=== PATIENT | female | born 1985 | race Caucasian/White ===

== ENCOUNTER 2017-12-19 15:23 | Emergency (ER) | payer MEDICAID, SELFPAY ==
[2017-12-19 15:24] VITALS: BP 134/81; PULSE 83; RESP 16; TEMP 36.6; O2SAT 100; BMI 17.6
--- NOTE | 2017-12-19 15:30 | RAD_ITS ---
STUDY: X-RAY - RIGHT WRIST REASON FOR EXAM: Female, 32 years old. Right wrist pain. No known injury. TECHNIQUE: 3 view(s) of the wrist were obtained. COMPARISON: None. FINDINGS: Normal visualized distal radius and ulna. Normal radiocarpal articulation. Normal distal radioulnar articulation. Normal carpal bones. Normal carpal articulations. Normal carpometacarpal articulation of the thumb. Normal second through fifth carpometacarpal articulations. Normal visualized metacarpal bones. The soft tissue structures are unremarkable. RAD/Wrist min 3 Views IMPRESSION: Normal x-ray examination of the wrist. Electronically Signed: Michael Nation MD at 15:46 EDT Tel [phone], Service support ,
--- NOTE | 2017-12-19 16:19 | ED.VISSUMM ---
- ER Visit Summary Date of Service: 12/19/17 Chief Complaint: Right wrist pain History of Present Illness: The patient is a 32 F who presents with right wrist pain since yesterday. 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 She does not recall specific injury. She does have a history of prior similar symptoms. She has tried no home treatment no wiiq-hsn-qotwyzh medications. She states her pain is worse with extension of the wrist. She denies paresthesias weakness or loss of function. She states occasionally pain shoots down into her hand or fingers. Physical Examination: Afebrile vitals are unremarkable Moist mucous membranes Heart regular No respiratory distress Patient has focal tenderness along the dorsal distal forearm and wrist over the wrist extensors her pain is increased with wrist extension she has normal strength normal opposition of the digits brisk capillary refill normal sensation to light touch she does not have focal bony tenderness she has an easily palpable radial pulse Test Results: Chest x-ray is normal Emergency Department Course and Treatment: History and examination are consistent with a wrist strain and strain of the muscles and tendons of the wrist extensors. She was given a Velcro wrist splint and instructed on supportive care including rest ice and elevation. She was given a prescription for naproxen and discharged home. Treatment Plan: [] Disposition: Discharge Impression: Right wrist strain This note was generated with [employer] dictation software. It may contain incorrect words, spelling, and punctuation that were not noted in review of the chart prior to signing ED Disposition - Plan for ED Patient: Chief Complaint: Upper Extremity Injury Referrals: Care Physician,No Primary [Primary Care Provider] -
--- NOTE | 2017-12-19 16:22 | ED.DCSUM_ITS ---
- ER Visit Summary Date of Service: 12/19/17 Chief Complaint: Right wrist pain History of Present Illness: The patient is a 32 F who presents with right wrist pain since yesterday. 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 She does not recall specific injury. She does have a history of prior similar symptoms. She has tried no home treatment no over-the- counter medications. She states her pain is worse with extension of the wrist. She denies paresthesias weakness or loss of function. She states occasionally pain shoots down into her hand or fingers. Physical Examination: Afebrile vitals are unremarkable Moist mucous membranes Heart regular No respiratory distress Patient has focal tenderness along the dorsal distal forearm and wrist over the wrist extensors her pain is increased with wrist extension she has normal strength normal opposition of the digits brisk capillary refill normal sensation to light touch she does not have focal bony tenderness she has an easily palpable radial pulse Test Results: Chest x-ray is normal Emergency Department Course and Treatment: History and examination are consistent with a wrist strain and strain of the muscles and tendons of the wrist extensors. She was given a Velcro wrist splint and instructed on supportive care including rest ice and elevation. She was given a prescription for naproxen and discharged home. Treatment Plan: [] Disposition: Discharge Impression: Right wrist strain This note was generated with [employer] dictation software. It may contain incorrect words, spelling, and punctuation that were not noted in review of the chart prior to signing ED Disposition - Plan for ED Patient: Chief Complaint: Upper Extremity Injury Referrals: Care Physician,No Primary [Primary Care Provider] -
--- NOTE | 2017-12-19 16:23 | ED.DEP ---
ED Disposition - Plan for ED Patient: Chief Complaint: Upper Extremity Injury Instructions: ED Strain Muscle Ext Prescriptions: Naproxen [Naprosyn] 500 mg PO BID #20 tab Referrals: Care Physician,No Primary [Primary Care Provider] -
[2017-12-19 16:37] VITALS: PULSE 81; RESP 16
--- NOTE | 2017-12-19 16:38 | ED.RN ---
THIS NURSE REVIEWED D/C INSTRUCTIONS WITH PT. PT VERBALIZED UNDERSTANDING OF INSTRUCTIONS. PT DENIES FURTHER NEEDS OR QUESTIONS AT THIS TIME. PT AMBULATES FROM ROOM ON OWN WITHOUT ASSISTANCE FROM STAFF
== END 2017-12-19 16:39 | disposition home or self-care (01) ==
PROVIDERS: Emergency Provider Emergency Medicine
DX: S66.911A Strain of unspecified muscle, fascia and tendon at wrist and hand level, right hand, initial encounter (principal); X58.XXXA Exposure to other specified factors, initial encounter; Y93.9 Activity, unspecified; Y92.9 Unspecified place or not applicable; Z86.19 Personal history of other infectious and parasitic diseases; Z90.710 Acquired absence of both cervix and uterus; Z72.0 Tobacco use
CPT/HCPCS: 73110; 99283

== ENCOUNTER 2018-01-23 20:32 | Emergency (ER) | payer MEDICAID, SELFPAY ==
[2018-01-23 20:32] VITALS: BP 114/72; PULSE 83; RESP 16; TEMP 36.8; O2SAT 97; BMI 16.2
[2018-01-23 21:38] LABS: Absolute Lymphocyte Count 2.25 X10^3/ul (0.83-4.51); Absolute Neutrophil Count 4.8 X10^3/uL (2.0-7.7); Basophil# 0.04 X10^3/uL; Basophil% 0.5 % (0-1); Eosinophil# 0.33 X10^3/uL; Eosinophils% 4.1 % (0-5); Hematocrit 38.9 % (37-47); Hemoglobin 12.7 g/dl (12.0-15.0); Lymphocyte # 2.25 X10^3/ul (4.0); Lymphocyte % 27.7 % (19-41); Mean Corp Hgb Conc 32.6 g/gl (32-36); Mean Corpuscular Hgb 28.5 pg (27.0-32.0); Mean Corpuscular Volume 87.2 fL (81-99); Monocyte# 0.67 X10^3/uL; Monocyte% 8.3 % (0-10); Neutrophil # 4.82 X10^3/uL (2.7-7.7); Neutrophil % 59.3 % (47-70); Platelet Count 181 K/mm3 (150-450); RBC Distribution Width CV 13.7 % (11.6-14.6); RBC Distribution Width SD 43.4 fl (35.1-43.9); Red Blood Count 4.46 M/mm3 (4.2-5.4); White Blood Count 8.1 K/mm3 (4.4-11.0)
[2018-01-23 21:54] LABS: Anion Gap 5 (5-15); BUN 16 mg/dL (7-18); BUN/Creat Ratio 24.8 RATIO (10-20); Calcium,Total 8.8 mg/dL (8.5-10.1); Chloride 111 mmol/L (98-107); Creatinine, Serum 0.65 mg/dL (0.55-1.02); EST Glomerular Filtration Rate 113 mL/min (>60); Est Glom Filt Rate - Afr Amer 136 mL/min (>60); Estimated Creatinine Clearance 84.54 ml/min; Glucose 88 mg/dL (74-106); Potassium 3.7 mmol/L (3.5-5.1); Sodium Level 141 mmol/L (136-145)
[2018-01-23 21:59] LABS: Pregnancy, Serum, hCG Quali. NEGATIVE Negative (0-9 Nonpreg)
[2018-01-23 22:01] LABS: POSITIVE COUNT NO; POSITIVE DIFFERENTIAL NO; POSITIVE MORPHOLOGY NO
[2018-01-23] MEDS: 0.9% Normal Saline 1,000 ML 999 ML IV (22:08)
[2018-01-23] MEDS: proMETHazine 25 MG/ML Syringe 12.5 MG IV (22:09)
[2018-01-23 22:19] LABS: Lipase 195 U/L (73-393)
[2018-01-23 22:23] LABS: AST(SGOT) 13 U/L (15-37); Alanine Aminotransfer ALT/SGPT 18 U/L (13-56); Alkaline Phosphatase 62 U/L (45-117); Bilirubin, Direct 0.08 mg/dL (0.00-0.30); Globulin 3.2 g/dL (2.2-4.2); Protein, Total 7.2 g/dL (6.4-8.2)
[2018-01-23 22:43] LABS: Mucous, Urine 0 SEEN /hpf (<or=2+); Red Blood Cells-Urine 0 SEEN /hpf (0-5)
[2018-01-23 22:48] LABS: Color, Urine Yellow (Yellow); Glucose, Dipstick Normal (Normal); Ketone-Dipstick Negative (Negative); Leukocyte Esterase-Dipstick 25 /ul (Negative); Nitrite-Dipstick Negative (Negative); Occult Blood-Urine Negative /ul (Negative); Protein-Dipstick Negative (Negative); Urine Bilirubin Dipstick Negative (Negative); Urine Clarity Clear (Clear); Urine Urobilinogen Normal (Normal)
[2018-01-23 22:54] LABS: Squamous Epithelial Cells - UA 0-5 SEEN /hpf (5-10); White Blood Cells 0-5 SEEN /hpf (0-5)
[2018-01-23 22:55] LABS: Bacteria 1+ /hpf (None Seen)
--- NOTE | 2018-01-23 23:03 | ED.VISSUMM ---
- ER Visit Summary Date of Service: 01/23/18 Chief Complaint: Nausea and vomiting History of Present Illness: The patient is a 32 F who presents with nausea and vomiting. It began earlier today. She reports 14-15 episodes of nonbloody nonbilious emesis today. She states her abdomen is a little sore vomiting but denies any real pain. She denies any diarrhea. She states she had a fever of 100.0. Physical Examination: Afebrile vitals are within normal limits Patient resting comfortably in no distress Moist mucous membranes Heart regular rate and rhythm Lungs are clear Abdomen soft nontender nondistended Alert Test Results: CBC CMP lipase urinalysis all normal and is negative Emergency Department Course and Treatment: Patient was treated with IV fluids and Phenergan here she is resting completely on reevaluation she said no further vomiting. Patient discharged. Treatment Plan: [] Disposition: Discharge Impression: Vomiting This note was generated with [employer] dictation software. It may contain incorrect words, spelling, and punctuation that were not noted in review of the chart prior to signing ED Disposition - Plan for ED Patient: Chief Complaint: Nausea/Vomiting Referrals: Care Physician,No Primary [Primary Care Provider] -
--- NOTE | 2018-01-23 23:05 | ED.DEP ---
ED Disposition - Plan for ED Patient: Chief Complaint: Nausea/Vomiting Instructions: ED Nausea Vomiting Referrals: Care Physician,No Primary [Primary Care Provider] -
[2018-01-23 23:15] VITALS: PULSE 83; RESP 16; O2SAT 97
== END 2018-01-23 23:16 | disposition home or self-care (01) ==
PROVIDERS: Emergency Provider Emergency Medicine
DX: R11.2 Nausea with vomiting, unspecified (principal); Z90.710 Acquired absence of both cervix and uterus; Z72.0 Tobacco use
CPT/HCPCS: 80048; 80076; 81001; 83690; 84703; 85025; 96361; 96374; 99284; J7030; A4216

== ENCOUNTER 2018-04-04 15:58 | Emergency (ER) | payer OTHER, SELFPAY ==
[2018-04-04 16:00] VITALS: BP 105/70; PULSE 73; RESP 18; TEMP 36.7; O2SAT 97; BMI 16.2
--- NOTE | 2018-04-04 16:25 | RAD_ITS ---
STUDY: X-RAY - LEFT HAND REASON FOR EXAM: Female, 32 years old. Trauma TECHNIQUE: 3 view(s) of the hand. COMPARISON: None. FINDINGS: There is no evidence of fracture or dislocation. There are no significant degenerative changes. There are no radiodense foreign bodies. RAD/Hand Min 3 Views IMPRESSION: No fracture or dislocation. Electronically Signed: Brian Sanders, at 16:45 EDT Tel , Service support ,
--- NOTE | 2018-04-04 17:16 | ED.VISSUMM ---
- ER Visit Summary Date of Service: 04/04/18 Chief Complaint: Left hand injury History of Present Illness: The patient is a 32 F who presents with chief complaint of left hand pain. Patient states she injured her left hand at work on March 21. Her hand slipped when trying to cut a band and she crushed her hand against a piece of metal. She was seen the following day at [facility]. Patient states x-rays were done and she was told she had a fracture of her thumb. She is placed in a splint for 1 week and then changed out to an Bennie bandage. Patient presents with continued pain to the left thumb. She had previously been doing physical therapy but states she received a phone call stating that [employer] had denied it. When she called [employer] they state that they had just received the paperwork today. Physical Examination: Vital signs are unremarkable. Patient sitting in the modi chair no acute distress. Left upper extremity examination significant for tenderness along the left thumb without deformity. There is no significant edema. She is normal cap refill distally. There is no tenderness at the wrist or elbow. Test Results: Left hand x-rays are obtained and reveal no evidence of fracture or dislocation. Emergency Department Course and Treatment: I did explain to the patient that at this time we see no evidence of fracture, however she may still have a ligament or tendon injury. She is placed in a Velcro thumb spica splint and begin prescription for naproxen. Should be referred to orthopedics for follow-up as well as back to [facility]. Treatment Plan: [] Disposition: Discharge Impression: Crush injury left hand This note was generated with [employer] dictation software. It may contain incorrect words, spelling, and punctuation that were not noted in review of the chart prior to signing ED Disposition - Plan for ED Patient: Chief Complaint: Upper Extremity Injury Referrals: Care Physician,No Primary [Primary Care Provider] -
--- NOTE | 2018-04-04 17:18 | ED.DEP ---
ED Disposition - Plan for ED Patient: Disposition: Home or Assisted Living Chief Complaint: Upper Extremity Injury Instructions: ED Crush Injury Finger No Fx Prescriptions: Naproxen [Naprosyn] 500 mg PO BID PRN #20 tablet Referrals: Sonny Esteban DO [STAFF PHYSICIAN] - [facility] [GROUP OF PHYSICIANS] -
== END 2018-04-04 17:48 | disposition home or self-care (01) ==
PROVIDERS: Emergency Provider Emergency Medicine
DX: S67.22XA Crushing injury of left hand, initial encounter (principal); X58.XXXA Exposure to other specified factors, initial encounter; Y93.9 Activity, unspecified; Y92.9 Unspecified place or not applicable; Z85.41 Personal history of malignant neoplasm of cervix uteri; Z90.710 Acquired absence of both cervix and uterus; Z72.0 Tobacco use
CPT/HCPCS: 73130; 99283

== ENCOUNTER 2020-04-21 11:21 | Emergency (ER) | payer SELFPAY ==
[2020-04-21 11:22] VITALS: BP 102/76; PULSE 98; RESP 18; TEMP 36.8; O2SAT 99; BMI 17.6
--- NOTE | 2020-04-21 12:22 | RAD_ITS ---
STUDY: X-RAY CHEST REASON FOR EXAM: Female, 34 years old. COUGH SORE THROAT AND CHEST TIGHTNESS SINCE TUESDAY TECHNIQUE: Single AP portable view of the chest. COMPARISON: None. FINDINGS: The lungs are clear and expanded. There is no demonstrated pleural abnormality. Normal size heart. Normal mediastinum and malia. Normal visualized pulmonary arteries. Normal visualized aortic arch and descending thoracic aorta. Normal visualized thoracic spine. Normal visualized ribs, clavicles, and shoulders. There is no demonstrated abnormality of the visualized soft tissue structures of the upper abdomen. RAD/Chest 1 View (Portable) IMPRESSION: Normal x-ray examination of the chest. Electronically Signed: Michael Nation, at 13:02 EDT , Service support ,
[2020-04-21 12:25] VITALS: O2SAT 96
--- NOTE | 2020-04-21 12:41 | ED.VISSUMM ---
- ER Visit Summary Date of Service: 04/21/20 Chief Complaint: [Sore throat, cough, runny nose] History of Present Illness: The patient is a 34 F [resents to the emergency department symptoms started 2 days ago. Patient denies any fever. She denies any exposures to COVID. 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 Patient denies recent travel or surgery. She denies any chest pain. She denies any sick family members. She does live alone.] Physical Examination: [HEENT-PERRLA, EOMI. Cranial nerves II through XII grossly intact. TMs clear. Mucous membranes moist. No adenopathy. No tonsillar exudates. Uvula midline. No trismus. Cardiovascular-regular rate and rhythm without murmur or ectopy Lungs-clear to auscultation, chest wall stable without crepitus or subcu emphysema Abdomen-normoactive bowel sounds, soft, nontender, no rebound or rigidity, no peritoneal signs. Extremities-intact ?4, normal range of motion, normal pulses, atraumatic] Test Results: [S x-ray obtained was unremarkable. COVID-19 testing was undertaken and results pending.] Emergency Department Course and Treatment: [We will be given a prescription for Tessalon Perles.] Treatment Plan: [Advised to self quarantine for 14 days.] Disposition: [Discharged home in stable condition.] Impression: [Viral URI] This note was generated with [employer] software. It may contain incorrect words, spelling, and punctuation that were not noted in review of the chart prior to signing ED Disposition - Plan for ED Patient: Referrals: Care Physician,No Primary [Primary Care Provider] -
--- NOTE | 2020-04-21 12:43 | DCINST.ED_ITS ---
ED Disposition - Plan for ED Patient: Instructions: ED Upper Resp Infec No Abx Tx Prescriptions: Benzonatate [Tessalon Perle] 200 mg PO TID PRN PRN #20 cap PRN Reason: Cough Transmission Status: Pending to [employer] #30 Referrals: Care Physician,No Primary [Primary Care Provider] - Jacqueline Bowles MD [STAFF PHYSICIAN] - 5-7 Days
[2020-04-21 13:03] VITALS: BP 120/74; PULSE 88; RESP 18; O2SAT 96
--- NOTE | 2020-04-21 13:09 | ED.RN ---
pt advised to self quarauntine. pt states work will not allow her to and demanding she come to work. pt advised to contact the health department if necessary
== END 2020-04-21 13:10 | disposition home or self-care (01) ==
LOC: ED 12:37
PROVIDERS: Emergency Provider Emergency Medicine
DX: J06.9 Acute upper respiratory infection, unspecified (principal)
CPT/HCPCS: 71045; 87635; 99282; U0003

== ENCOUNTER 2020-04-23 11:17 | Emergency (ER) | payer SELFPAY ==
[2020-04-23 11:18] VITALS: BP 93/72; PULSE 97; RESP 18; TEMP 36.6; O2SAT 98; BMI 17.5
--- NOTE | 2020-04-23 12:20 | RAD_ITS ---
STUDY: X-RAY CHEST REASON FOR EXAM: Female, 35 years old. cough, sob. HX CERVICAL CA AND HPV TECHNIQUE: Single AP portable view of the chest. COMPARISON: Comparison is made with prior study dated April 21, 2020. FINDINGS: The lungs are clear and expanded. There is no demonstrated pleural abnormality. Normal size heart. Normal mediastinum and malia. Normal visualized pulmonary arteries. Normal visualized aortic arch and descending thoracic aorta. Normal visualized thoracic spine. Normal visualized ribs, clavicles, and shoulders. There is no demonstrated abnormality of the visualized soft tissue structures of the upper abdomen. RAD/Chest 1 View (Portable) IMPRESSION: Normal x-ray examination of the chest. Electronically Signed: Michael Nation, at 12:42 EDT , Service support ,
[2020-04-23] MEDS: Naproxen 500 MG Tablet PO (12:25)
--- NOTE | 2020-04-23 13:34 | ED.DCSUM_ITS ---
- ER Visit Summary Date of Service: 04/23/20 Chief Complaint: Cough History of Present Illness: The patient is a 35 F with no primary care physician. She has a cough that began 4 days ago. Is productive of green/yellow sputum. She believes this is because she was camping all weekend. She has had chills, but no fever. She reports that she has a sharp pain that is 8 out of 10 in severity with coughing and is pain-free at rest. She reports that she is mildly short of breath. She has diffuse myalgias. She has abdominal pain from coughing. Physical Examination: Vitals: Stable. Afebrile. General: Well-nourished and well-developed. Head: Normocephalic atraumatic. Neck: Supple, no lymphadenopathy. No JVD. Nontender. Cardiovascular: Regular rate and rhythm. No murmurs. Respiratory: No respiratory distress. Clear to auscultation bilaterally. Abdominal: Soft, nontender, nondistended, normal bowel sounds. No guarding, rebound, or peritoneal signs. Back: Nontender. Extremities: Nontender, no edema. Skin: Normal color, no rash. Neurologic: Alert and oriented ?3. Cranial nerves II through XII are intact. Normal strength and sensation. Psych: Normal affect. Test Results: Clinical Impression(s) from Imaging Studies Chest X-Ray 04/23/20 12:20 IMPRESSION: Normal x-ray examination of the chest. Electronically Signed: Michael Nation, at 12:42 EDT , Service support , Emergency Department Course and Treatment: Patient had a work-up 2 days ago that included a negative COVID-19 test. This was not repeated. She was given naproxen p.o. and is sleeping comfortably. Treatment Plan: Patient will be discharged with symptomatic care. Push fluids. Use Tylenol and/or ibuprofen for pain. I discussed that she could have COVID-19 and she needs to quarantine. She is instructed to follow-up with the [facility] in 2 weeks if not improving. Return to the emergency department for any worsening symptoms. Disposition: To home in improved and stable condition. Impression: 1. URI. This note was generated with [employer] dictation software. It may contain incorrect words, spelling, and punctuation that were not noted in review of the chart prior to signing ED Disposition - Plan for ED Patient: Disposition: Home or Assisted Living Instructions: ED Upper Resp Infec No Abx Tx Prescriptions: Naproxen [Naprosyn] 500 mg PO BID #14 tab Prescription Printed Referrals: Keara Keane [NON-STAFF] - 10-14 Days if not better
== END 2020-04-23 13:59 | disposition home or self-care (01) ==
LOC: ED 13:48
PROVIDERS: Emergency Provider Emergency Medicine
DX: J06.9 Acute upper respiratory infection, unspecified (principal); F17.200 Nicotine dependence, unspecified, uncomplicated
CPT/HCPCS: 71045; 99283

== ENCOUNTER 2021-01-06 09:01 | Emergency (ER) | payer MEDICAID, SELFPAY ==
[2021-01-06 09:01] VITALS: BP 131/77; BP 136/77; PULSE 74; PULSE 78; RESP 16; TEMP 36.2; O2SAT 100; O2SAT 99; BMI 19.9
--- NOTE | 2021-01-06 09:28 | CT_ITS ---
STUDY: CT BRAIN WITHOUT CONTRAST REASON FOR EXAM: Female, 35 years old. Vertigo RADIATION DOSAGE (If Supplied By Facility): CTDIvol = ( 44.99 ) mGy, DLP = ( 779.24 ) mGycm TECHNIQUE: Transaxial CT imaging of the brain was performed without administration of intravenous contrast material. Individualized dose optimization techniques were used for this CT. COMPARISON: No relevant priors. FINDINGS: Normal soft tissue structures. Normal calvarium. Normal size ventricles and extra-axial spaces for the patient''s age. Normal white matter tracts of the cerebral hemispheres. Normal basal ganglia and thalami. Normal brainstem. Normal cerebellum. There is no intracranial hemorrhage. There are no findings of an acute ischemic infarction. Normal visualized paranasal sinuses. CT/Brain/Head without Contrast IMPRESSION: Normal unenhanced CT scan of the brain. Electronically Signed: Michael Nation MD at 10:38 EDT , Service support ,
[2021-01-06] MEDS: Ondansetron ODT 4 MG Tablet PO ×2 (09:33→10:27)
--- NOTE | 2021-01-06 09:37 | ED.VIS.GEN ---
History of Present Illness Chief Complaint: Dizziness Informant: Patient Onset: Days, - Timing: Intermittent Narrative: Patient is a 35-year-old female presented with intermittent episodes of dizziness. She states she has been having episodes over the past 5 days. She states she is 5-6 episodes a day. She states when they happen she feels that she cannot walk great and is very dizzy as if she is on a ship or drunk. She notes she also gets pale, sweaty, her vision is cloudy and has associated nausea and vomiting. She denies any associated chest pain, heart racing or difficulty breathing. Denies associated abdominal pain. No fever or chills. Patient states a couple years ago she had similar episodes and was diagnosed with vertigo at [facility]. She states she was placed on the medicine but it made her sleepy and had a hard time working. She thinks it might have been Antivert. She had another wave of symptoms a couple weeks ago and followed up at [facility]. She had blood work and Holter monitor. She does not know the results of this. Notes that she does sometimes get ringing in her ear and gets fullness in her right ear. Mother has M?ni?re's disease. Past Medical History - Allergies and Home Meds Allergies/Adverse Reactions: Allergies acetaminophen [From Vicodin] Allergy (Verified 01/06/21 09:04) Hives hydrocodone [From Vicodin] Allergy (Verified 01/06/21 09:04) Hives sulfamethoxazole [From Bactrim] Allergy (Verified 01/06/21 09:04) Hives trimethoprim [From Bactrim] Allergy (Verified 01/06/21 09:04) Hives Primary Care Physician: Care Physician,No Primary [Primary Care Provider] - Past Medical History: - - HPV, vertigo Surgical History: hysterectomy Lives: With Family Smoking Status: Current every day smoker Review of Systems General: Reports: Sweats, - - Dizziness. Denies: Chills, Fever Eyes: Denies: Visual changes - bilaterally, Diplopia ENT: Denies: Rhinorrhea, Sore throat Cardiovascular: Denies: Chest pain, Palpitations, Heart racing Respiratory: Denies: Dyspnea, Cough, Dyspnea on exertion Gastrointestinal: Reports: Nausea, Vomiting. Denies: Abdominal pain, Diarrhea, Melena, Hematochezia Genitourinary: Denies: Dysuria, Hematuria, Frequency Musculoskeletal: Denies: Back pain, Extremity Pain Skin: Denies: Rash, Wounds Neurological: Denies: Headache, Weakness, Numbness Physical Exam Vital Signs/Narrative: Vital Signs Temp Pulse Resp BP Pulse Ox 01/06/21 09:01 97.2 F L 74 16 131/77 H 100 Inital Vital Signs reviewed: Yes General: Well nourished, Well developed, No Acute Distress Head: Normocephalic, Atraumatic Eyes: Perrl, EOMI, - - Bilateral fatiguing horizontal nystagmus with leftward gaze ENT: Moist mucous membranes, No rhinorrhea, TM's clear Neck: Supple, Nontender, No JVD Cardiovascular: Regular rate, Regular rhythm, No murmurs Respiratory: No distress, CTA bilaterally, Chest nontender Abdomen: Soft, Nontender, Nondistended, Normal bowel sounds Back: Nontender, Normal Inspection Extremities: Nontender, No edema Skin: Normal color, No rash Neurological: Alert, Oriented x3, Cranial nerves II-XII grossly intact, Normal Strength, Normal Sensation, - - Normal coordination, no truncal ataxia. Normal [id number] Psychological: Normal affect, Normal Mood Diagnostic/Tx/Re-eval Clinical Impression(s) from Imaging Studies Brain CT 01/06/21 09:28 IMPRESSION: Normal unenhanced CT scan of the brain. Electronically Signed: Michael Nation MD at 10:38 EDT , Service support , - Medical Decision Making Patient is evaluated for intermittent episodes of dizziness for the past years but worsening over the past week. Because of the ongoing chronicity of it I did obtain a head CT which does not show any cerebellar lesions, this or any other acute process. I suspect this is peripheral vertigo and I question if she could have M?ni?re's disease as she has a family history of it and does also report ringing in her right ear intermittently. Patient has no other neurologic symptoms or any other focal neurologic deficits. She does not have any truncal ataxia. Patient has improvement of her symptoms with oral Valium and Zofran. I was able to perform the [place]-Hallpike test and patient was positive on the right. Patient referred to ENT for follow-up. She is given a prescription for meclizine and a work note per her request. Patient is counseled on signs and symptoms requiring return to the emergency room. Patient verbalizes agreement and understand this plan. Patient discharged home in stable and improved condition. ED Disposition - Plan for ED Patient: Disposition: Home or Assisted Living Diagnosis: Peripheral vertigo involving right ear Instructions: ED BPV Vertigo Prescriptions: Meclizine HCl 25 mg PO Q6H PRN PRN #15 tablet PRN Reason: Vertigo Transmission Status: Pending to [employer] #30 Referrals: Jason Logan MD [STAFF PHYSICIAN] - Additional Instructions: Follow-up with ENT- Arturo Matthews. I suspect you have vertigo and is possible with your family history and ringing in ears you might also have M?ni?re's disease. Please also follow-up with your primary care doctor.
[2021-01-06] MEDS: diazePAM 5 MG Tablet PO (10:07)
[2021-01-06 13:00] VITALS: BP 94/64; PULSE 81
== END 2021-01-06 13:04 | disposition home or self-care (01) ==
PROVIDERS: Emergency Provider Emergency Medicine
DX: H81.391 Other peripheral vertigo, right ear (principal); F17.200 Nicotine dependence, unspecified, uncomplicated
CPT/HCPCS: 70450; 99283; A4216

== ENCOUNTER → 2021-01-26 16:17 | Outpatient (CLI) | payer MEDICAID, SELFPAY ==
[2021-01-06 09:01] VITALS: BMI 19.9
--- NOTE | 2021-01-26 16:23 | MRI_ITS ---
HISTORY: Ataxia. Cervical cancer. Symptoms are ongoing for 4 weeks. Hysterectomy. Mnire's disease. Vertigo for 3 or 4 weeks R 27.0 Technique: An MRI of the brain was performed. Additional temporal bone series were obtained and the axial and coronal plane. Pre-and post gadolinium images were obtained. 420 images. Comparison study is a CT scan of the brain from January 06, 2021. Findings: Brain volume is normal. Pires-white differentiation is preserved. The orbits and globes are normal. There are no masses, herniations, nor deviations. No acute ischemia is present. No white matter disease is present. Flow is present within major central intracranial arteries. Paranasal sinuses and mastoid air cells are free of disease. No metastatic enhancing lesions are perceived within the brain. No cerebral pontine angle masses. Cranial nerves V, 6, 7, and 8 are normal. The internal auditory canal masses. The vestibular and cochlear systems are normal. Internal and external auditory canals are normal in size and appearance. MRI/Brain W/WO Contrast IMPRESSION: Normal. at 0700 Reported and signed by: Jim Becerra MD Electronically Signed: Jim Becerra MD at 6:58 EDT Tel , Service support ,
== END ==
PROVIDERS: PCP Family Medicine; Referring Provider Otolaryngology; Visit Provider Otolaryngology
DX: R27.0 Ataxia, unspecified (principal)
CPT/HCPCS: 70553; A9575

== ENCOUNTER 2021-02-04 09:10 | Emergency (ER) | payer MEDICAID, SELFPAY ==
[2021-02-04 09:11] VITALS: BP 138/77; PULSE 106; RESP 15; TEMP 36.4; O2SAT 97; BMI 18.1
[2021-02-04 09:23] VITALS: O2SAT 98
--- NOTE | 2021-02-04 09:36 | EX.ED.DYSGE1 ---
HPI History of Present Illness Chief Complaint: Cold Sx Narrative Narrative: 35-year-old female states that about a week ago she began to have nasal congestion and a cough. She saw ENT was given 5 days of amoxicillin. She subsequently developed some diarrhea. She states now she feels the cough is deep in her chest and she feels more short of breath. No fevers. PFSH PFSH Medical History Anemia Asthma Bartholin cyst Cervical cancer Home Medications albuterol sulfate [Ventolin HFA] 2 puff INHALATION Q4H PRN PRN #1 inhaler 02/04/21 [Rx Last Taken Unknown] mirtazapine 15 mg PO QHS 02/04/21 [History Last Taken Unknown] prazosin 1 mg PO QHS 02/04/21 [History Last Taken Unknown] prednisone 60 mg PO DAILY #15 tablet 02/04/21 [Rx Last Taken Unknown] sertraline 50 mg PO DAILY 02/04/21 [History Last Taken Unknown] Allergy/AdvReac Type Severity Reaction Status Date / Time acetaminophen [From Vicodin] Allergy Hives Verified 01/06/21 09:04 hydrocodone [From Vicodin] Allergy Hives Verified 01/06/21 09:04 sulfamethoxazole Allergy Hives Verified 01/06/21 09:04 [From Bactrim] trimethoprim [From Bactrim] Allergy Hives Verified 01/06/21 09:04 Family History (Updated 04/10/18 @ 12:41 by Lisbeth Kruger) Mother Myocardial infarction History of hysterectomy Surgical History H/O LEEP History of hysterectomy Hx of section Social History Smoking Status: Current every day smoker alcohol intake: never ROS ROS ED Constitutional Constitutional ED: Denies chills or weight loss Eyes Eyes: Denies change in vision or diplopia ENT ENT ED: Reports rhinorrhea; Denies ear pain or sore throat Cardiovascular Cardiovascular: Denies chest pain, orthopnea, palpitations or racing heartbeat Respiratory/Chest Respiratory/Chest: Reports cough, dyspnea, dyspnea on exertion and sputum; Denies orthopnea Gastrointestinal Gastrointestinal: Reports diarrhea; Denies abdominal pain, nausea or vomiting Genitourinary Genitourinary ED: Denies dysuria, hematuria or urinary frequency Musculoskeletal Musculoskeletal: Denies arthralgias or myalgias Integumentary Denies abscess or rash Neurologic Neurologic: Denies headache(s) or weakness Psychiatric Psychiatric: Denies anxiety, depression, suicidal ideation or suicidal thoughts Endocrine Endocrinology: Denies polydipsia, polyphagia or polyuria Allergic/Immunologic Allergic/Immunologic ED: Denies mouth swelling, tongue swelling or urticaria EXAM Physical Exam Const Vital Signs: 02/04/21 09:11 02/04/21 09:45 02/04/21 09:57 Temperature 97.5 F L Temperature Source Temporal Pulse Rate 106 H 96 Respiratory Rate 15 24 H Respiratory Effort Short of Breath Labored Respiratory Depth Normal Respiratory Pattern Normal Blood Pressure 138/77 H Blood Pressure Mean 97 Pulse Ox 97 98 Oxygen Delivery Method Room Air Room Air Positive well nourished and well developed General Appearance ED: well developed HEENT Reports normocephalic, head/scalp atraumatic and moist mucous membranes HEENT Narrative: Nasal congestion no oropharyngeal erythema Eyes PERRL and EOMs intact bilaterally Neck no lymphadenopathy, supple and no JVD Resp normal respiratory effort Auscultation: rhonchi and wheezes Cardio regular rate, regular rhythm and no murmurs GI normal to inspection, nondistended, normoactive bowel sounds and non-tender Palpation: soft Back/Spine no CVA tenderness and normal ROM Extremity normal to inspection General Extremety ED: Negative for edema General Extremity: Negative for edema Neuro oriented x3 and CN's II-XII intact bilaterally Sensorium / Orientation: alert Motor Exam: strength 5/5 throughout Psych mental status grossly normal Mood & Affect: Negative for depressed or tearful Skin no rashes or lesions noted and no wounds MDM MDM MDM Narrative Medical decision making narrative: My interpretation is a single view portable chest x-ray is no acute process. Covid test negative. Patient received a DuoNeb. The diarrhea is probably related to the antibiotics. Thinks she also has bronchitis. She was counseled on smoking cessation. I will place her albuterol MDI as well as prednisone. I think this is most likely viral in nature. Lab Data Attestation: I reviewed the patient's lab results. Radiography Diagnostic Testing: Radiology Impression Chest X-Ray 02/04/21 10:05 IMPRESSION: Normal x-ray examination of the chest. Electronically Signed: Michael Nation MD at 10:23 EDT , Service support , Discharge Plan Triage Chief Complaint: Cold Sx ED Provider: Yonas Shen Dx/Rx/DC Orders Clinical Impression: Acute bronchitis with bronchospasm Instructions: ED Bronchitis with Wheezing (Adult) Prescriptions: New prednisone 20 MG tablet 60 mg PO DAILY Qty: 15 RF: 0 albuterol sulfate [Ventolin HFA] 1 INHALER inhaler 2 puff inhalation Q4H PRN PRN (Reason: Wheezing) Qty: 1 RF: 0 No Action prazosin 1 mg Capsule 1 mg PO QHS RF: 0 mirtazapine 15 mg Tablet,Disintegrating 15 mg PO QHS RF: 0 sertraline 50 mg Tablet 50 mg PO DAILY RF: 0 Stand Alone Forms: ED Work / School Excuse Primary Care Provider: Riddhi Maldonado Referrals: Riddhi Maldonado MD [Primary Care Provider] - 1 Week if not improving Disposition Disposition: Home, self care
[2021-02-04] MEDS: Ipratropium/Albuterol Sulfate 3 ML AMPUL.NEB INHALATION (09:43)
[2021-02-04 09:45] VITALS: PULSE 96; RESP 24; O2SAT 98
--- NOTE | 2021-02-04 10:05 | RAD_ITS ---
STUDY: X-RAY CHEST REASON FOR EXAM: Female, 35 years old. One week history of cough and shortness of breath. TECHNIQUE: Single AP portable view of the chest. COMPARISON: Comparison is made with prior study dated 04/23/2020. FINDINGS: The lungs are clear and expanded. There is no demonstrated pleural abnormality. Normal size heart. Normal mediastinum and malia. Normal visualized pulmonary arteries. Normal visualized aortic arch and descending thoracic aorta. Normal visualized thoracic spine. Normal visualized ribs, clavicles, and shoulders. There is no demonstrated abnormality of the visualized soft tissue structures of the upper abdomen. RAD/Chest 1 View (Portable) IMPRESSION: Normal x-ray examination of the chest. Electronically Signed: Michael Nation MD at 10:23 EDT , Service support ,
[2021-02-04 10:47] VITALS: BP 97/71; PULSE 70; RESP 14; O2SAT 98
== END 2021-02-04 11:01 | disposition home or self-care (01) ==
PROVIDERS: Emergency Provider Emergency Medicine; PCP Family Medicine
DX: J20.9 Acute bronchitis, unspecified (principal); Z86.2 Personal history of diseases of the blood and blood-forming organs and certain disorders involving the immune mechanism; Z85.41 Personal history of malignant neoplasm of cervix uteri; F17.200 Nicotine dependence, unspecified, uncomplicated
CPT/HCPCS: 71045; 87426; 94640; 99282

== ENCOUNTER 2021-02-16 10:15 | Emergency (ER) | payer MEDICAID, SELFPAY ==
[2021-02-16 10:16] VITALS: BP 105/72; PULSE 95; RESP 16; TEMP 36.6; O2SAT 99; BMI 18.1
--- NOTE | 2021-02-16 10:34 | EKG12_ITS ---
Test Reason : ALLERGIC REACTION Blood Pressure : / mmHG Vent. Rate : 079 BPM Atrial Rate : 079 BPM P-R Int : 184 ms QRS Dur : 080 ms QT Int : 374 ms P-R-T Axes : 070 061 033 degrees QTc Int : 428 ms Normal sinus rhythm Cannot rule out Anterior infarct , age undetermined Abnormal ECG Confirmed by CHOCO ANNE, CAMILA ([id number]), editor trade journal ALONSO BUCKLEY ([id number]) on 02/18/2021 8:19:02 AM Referred By: TOBY Confirmed By:CAMILA WILHELM MD
--- NOTE | 2021-02-16 10:34 | EX.ED.DYSGE1 ---
HPI History of Present Illness Chief Complaint: Allergic Reaction Informant: patient Narrative Narrative: Patient presents for a questionable allergic reaction. She woke up this morning and felt like her face was swollen and her skin feels tight. She states that she had some tightness in her chest which is since resolved. She denies any trouble swallowing. She denies any tongue swelling. No rashes have been seen. She states that she recently finished a course of prednisone for bronchitis and Meniere's. She was started on a sleeping pill and Zofran at the end of January but has had no reactions to it since then. She denies any new irritants such as soaps, lotions, shampoos or laundry detergents. No fevers. She denies a cough. She continues to smoke. She did not take anything this morning for her symptoms. [facility] Medical History Anemia Asthma Bartholin cyst Cervical cancer Home Medications albuterol sulfate [Ventolin HFA] 2 puff INHALATION Q4H PRN PRN #1 inhaler 02/04/21 [Rx Last Taken Unknown] mirtazapine 15 mg PO QHS 02/04/21 [History Last Taken Unknown] prazosin 1 mg PO QHS 02/04/21 [History Last Taken Unknown] prednisone 60 mg PO DAILY #15 tablet 02/04/21 [Rx Last Taken Unknown] sertraline 50 mg PO DAILY 02/04/21 [History Last Taken Unknown] diphenhydramine HCl [Allergy (diphenhydramine)] 25 mg PO TID PRN #20 cap 02/16/21 [Rx Last Taken Unknown] Allergy/AdvReac Type Severity Reaction Status Date / Time acetaminophen [From Vicodin] Allergy Hives Verified 01/06/21 09:04 hydrocodone [From Vicodin] Allergy Hives Verified 01/06/21 09:04 sulfamethoxazole Allergy Hives Verified 01/06/21 09:04 [From Bactrim] trimethoprim [From Bactrim] Allergy Hives Verified 01/06/21 09:04 Family History Mother Myocardial infarction History of hysterectomy Surgical History H/O LEEP History of hysterectomy Hx of section Social History Smoking Status: Current every day smoker alcohol intake: never ROS ROS ED Constitutional Constitutional ED: Denies chills or fever(s) Eyes Eyes: Denies blurry vision, change in vision, diplopia or loss of vision ENT ENT ED: Reports other; Denies ear pain, rhinorrhea or sore throat Cardiovascular Cardiovascular: Reports chest pain Respiratory/Chest Respiratory/Chest: Denies cough, dyspnea, dyspnea on exertion or sputum Gastrointestinal Gastrointestinal: Denies abdominal pain, diarrhea, nausea or vomiting Genitourinary Genitourinary ED: Denies dysuria, hematuria or urinary frequency Musculoskeletal Musculoskeletal: Denies back pain, myalgias or neck pain Integumentary Denies abscess or rash Neurologic Neurologic: Denies headache(s) or weakness Psychiatric Psychiatric: Denies anxiety or depression Endocrine Endocrinology: Denies polydipsia or polyuria Hematologic/Lymphatic Hematologic/Lymphatic: Denies easy bleeding or easy bruising Allergic/Immunologic Allergic/Immunologic ED: Denies urticaria EXAM Physical Exam Const Vital Signs: 02/16/21 10:16 Temperature 97.8 F Temperature Source Temporal Pulse Rate 95 Respiratory Rate 16 Blood Pressure 105/72 Blood Pressure Mean 83 Pulse Ox 99 Oxygen Delivery Method Room Air Positive well nourished and well developed General Appearance ED: well developed and NAD HEENT Reports normocephalic and head/scalp atraumatic HEENT Narrative: There is no uvular edema. The uvula is midline. No tongue swelling. normocephalic and atraumatic; Negative for tenderness Eyes PERRL and EOMs intact bilaterally General Eye ED: Negative for scleral icterus Neck supple and no JVD Chest Wall palpation of chest normal Chest: Negative for tenderness Resp normal respiratory effort and clear to auscultation bilaterally Effort and Inspection: Negative for respiratory distress Cardio regular rate and regular rhythm; Negative for no murmurs GI soft to palpation, non-tender and non-distended Palpation: soft Back/Spine no CVA tenderness and no thoracic nor lumbar tenderness Cervical Spine: Negative for cervical spine tenderness Extremity normal to inspection General Extremety ED: Negative for tenderness Neuro oriented x3, CN's II-XII intact bilaterally and no sensory deficits noted Sensorium / Orientation: awake and alert Motor Exam: strength 5/5 throughout Psych mental status grossly normal Skin no rashes or lesions noted MDM MDM MDM Narrative Medical decision making narrative: . The patient had an EKG which was sinus rhythm with no ischemia. She is given 1 dose of Benadryl here. She is having no respiratory symptoms at this time. Her lungs are clear. No trouble swallowing. I feel she can take Benadryl for this at home. I am not quite sure what is causing this reaction. She will continue her medications and will call her PCP for follow-up Discharge Plan Triage Chief Complaint: Allergic Reaction ED Provider: Hakan Durant Dx/Rx/DC Orders Clinical Impression: Allergic reaction Instructions: ED Allergic Reaction Local Other Prescriptions: New diphenhydramine HCl [Allergy (diphenhydramine)] 25 mg capsule 25 mg PO TID PRN (Reason: allergic reaction) Qty: 20 RF: 0 No Action prazosin 1 mg Capsule 1 mg PO QHS RF: 0 mirtazapine 15 mg Tablet,Disintegrating 15 mg PO QHS RF: 0 sertraline 50 mg Tablet 50 mg PO DAILY RF: 0 prednisone 20 MG tablet 60 mg PO DAILY Qty: 15 RF: 0 albuterol sulfate [Ventolin HFA] 1 INHALER inhaler 2 puff inhalation Q4H PRN PRN (Reason: Wheezing) Qty: 1 RF: 0 Primary Care Provider: Riddhi Maldonado Referrals: Riddhi Maldonado MD [Primary Care Provider] - Disposition Disposition: Home, self care
[2021-02-16] MEDS: DiphenhydrAMINE 25 MG Capsule 50 MG PO (10:53)
== END 2021-02-16 11:40 | disposition home or self-care (01) ==
LOC: ED 11:33
PROVIDERS: Emergency Provider Emergency Medicine; PCP Family Medicine
DX: T78.40XA Allergy, unspecified, initial encounter (principal); X58.XXXA Exposure to other specified factors, initial encounter; J45.909 Unspecified asthma, uncomplicated; N75.0 Cyst of Bartholin's gland; Z86.2 Personal history of diseases of the blood and blood-forming organs and certain disorders involving the immune mechanism; Z85.41 Personal history of malignant neoplasm of cervix uteri; F17.200 Nicotine dependence, unspecified, uncomplicated
CPT/HCPCS: 93005; 99282

== ENCOUNTER 2021-06-20 21:54 | Emergency (ER) | payer MEDICAID, SELFPAY ==
[2021-06-20 21:54] VITALS: BP 116/71; PULSE 86; RESP 18; TEMP 36.1; BMI 23.4
== END 2021-06-20 22:20 | disposition left against medical advice (07) ==
LOC: ED 22:25
PROVIDERS: PCP Family Medicine
DX: Z53.21 Procedure and treatment not carried out due to patient leaving prior to being seen by health care provider (principal)

== ENCOUNTER 2021-12-23 23:43 | Emergency (ER) | payer MEDICAID, SELFPAY ==
[2021-12-23 23:43] VITALS: BP 108/78; PULSE 79; RESP 16; TEMP 36.3; O2SAT 98; BMI 22.3
== END 2021-12-24 01:30 | disposition left against medical advice (07) ==
LOC: ED 12-24 01:50
DX: Z53.21 Procedure and treatment not carried out due to patient leaving prior to being seen by health care provider (principal)

== ENCOUNTER 2022-08-21 22:46 | Emergency (ER) | payer MEDICAID, SELFPAY ==
[2022-08-21 22:47] VITALS: BP 111/78; PULSE 74; RESP 14; TEMP 36.6; O2SAT 98; BMI 20.5
--- NOTE | 2022-08-21 23:22 | EX.ED.DYSGE1 ---
HPI History of Present Illness Chief Complaint: Ear Problem Informant: patient Narrative Narrative: Patient states she woke up a couple hours ago and she felt as though her tongue and the right side of her face had pressure and swelling on it. No trouble breathing or swallowing. No rashes. No hives. No itching. She is not on any HARRY inhibitor's. She does have a history of vertigo but not having that. She states she gets water on the ear quite frequently. She denies any trauma. Nothing makes this better or worse. She does feel that it was swollen a while ago but it has gone down quite a bit. PFSH PFS Medical History Anemia Asthma Bartholin cyst Cervical cancer Smoker Home Medications albuterol sulfate 90 mcg/actuation aerosol inhaler (Ventolin HFA) 2 puff inhalation Q4H PRN PRN Wheezing ##1 02/04/21 [Rx Last Taken Unknown] mirtazapine 15 mg disintegrating tablet 15 mg PO QHS 02/04/21 [History Last Taken Unknown] prazosin 1 mg capsule 1 mg PO QHS 02/04/21 [History Last Taken Unknown] prednisone 20 mg tablet 60 mg PO DAILY #15 TABLETS 02/04/21 [Rx Last Taken Unknown] sertraline 50 mg tablet 50 mg PO DAILY 02/04/21 [History Last Taken Unknown] diphenhydramine HCl 25 mg capsule (Allergy (diphenhydramine)) 25 mg PO TID PRN allergic reaction #20 caps 02/16/21 [Rx Last Taken Unknown] Allergy/AdvReac Type Severity Reaction Status Date / Time acetaminophen [From Vicodin] Allergy Hives Verified 08/21/22 22:47 amoxicillin Allergy Anaphylaxis Verified 08/21/22 22:47 hydrocodone [From Vicodin] Allergy Hives Verified 08/21/22 22:47 sulfamethoxazole Allergy Hives Verified 08/21/22 22:47 [From Bactrim] trimethoprim [From Bactrim] Allergy Hives Verified 08/21/22 22:47 Family History Mother Myocardial infarction History of hysterectomy Surgical History H/O LEEP History of hysterectomy Hx of section Social History Smoking Status: Current every day smoker alcohol intake: never ROS ROS ED Constitutional Constitutional ED: Denies chills or fever(s) Eyes Eyes: Denies blurry vision, change in vision or diplopia ENT ENT ED: Reports other Details: See history of present illness Cardiovascular Cardiovascular: Denies chest pain or palpitations Respiratory/Chest Respiratory/Chest: Denies cough or dyspnea Gastrointestinal Gastrointestinal: Denies nausea or vomiting Musculoskeletal Musculoskeletal: Denies arthralgias or myalgias Integumentary Denies Abrasions or rash Neurologic Neurologic: Denies headache(s), paresthesias or weakness Endocrine Endocrinology: Denies polydipsia or polyuria Allergic/Immunologic Allergic/Immunologic ED: Reports mouth swelling and tongue swelling; Denies urticaria EXAM Physical Exam Const Vital Signs: 08/21/22 22:47 Temperature 98 F Temperature Source Temporal Pulse Rate 74 Respiratory Rate 14 Blood Pressure 111/78 Blood Pressure Mean 89 Pulse Ox 98 Oxygen Delivery Method Room Air Positive well nourished and well developed Constitutional Narrative: Patient sitting quietly in bed. She is texting her working on her phone. She looks quite comfortable. General Appearance ED: well developed and NAD HEENT Reports moist mucous membranes HEENT Narrative: Mucous membranes are moist. No thrush. Essentially no teeth. I see no sign of infection or abscess. The right side of the tongue does look slightly full to me. This looks to be coming mostly from under the tongue. This appears to likely be from salivary gland enlargement. But it is quite mild. Her voice is normal. She handles secretions well. No parotid tenderness. No pain at the ear. Tympanic membrane is clear other than a trace amount of fluid. But there is no erythema. The canal is not inflamed. No mastoid tenderness. No external facial swelling or tenderness. No rash or vesicles. No lymphadenopathy. Eyes EOMs intact bilaterally General Eye ED: Negative for pale conjunctiva or scleral icterus Neck no JVD Resp normal respiratory effort Neuro Sensorium / Orientation: alert Psych mental status grossly normal Skin no rashes or lesions noted Lesions: No lesion noted Rashes: No rashes noted MDM MDM MDM Narrative Medical decision making narrative: Patient has no sign of infection or abscess. She has no sign of allergic reaction. She is not on any HARRY inhibitor or ARB. She does appear to have some very subtle fullness under the right side of the tongue. She states the swelling came up quickly and went down relatively quickly. This is most consistent with a salivary duct stone. Recommendation is sour candies and massage to the area. No indication for antibiotics now. If swelling gets worse we may need to see her but these will usually resolve on their own. Discharge Plan Triage Chief Complaint: Ear Problem ED Provider: Oswaldo Mane Dx/Rx/DC Orders Clinical Impression: Calculus in salivary duct Instructions: ED Salivary Gland Stones Prescriptions: No Action prazosin 1 mg Capsule 1 mg PO QHS mirtazapine 15 mg Tablet,Disintegrating 15 mg PO QHS sertraline 50 mg Tablet 50 mg PO DAILY prednisone 20 MG tablet 60 mg PO DAILY Qty: 15 0RF albuterol sulfate [Ventolin HFA] 1 INHALER inhaler 2 puff inhalation Q4H PRN PRN (Reason: Wheezing) Qty: 1 0RF Rx Instructions: Dispense with spacer diphenhydramine HCl [Allergy (diphenhydramine)] 25 mg capsule 25 mg PO TID PRN (Reason: allergic reaction) Qty: 20 0RF Primary Care Provider: Care Physician,No Primary Referrals: Og Howell MD [Med Staff - Courtesy Staff] - 1 Week if not improving Care Physician,No Primary [Primary Care Provider] - Disposition Disposition: Home, Self Care
== END 2022-08-21 23:46 | disposition home or self-care (01) ==
PROVIDERS: Emergency Provider Emergency Medicine; Visit Provider Emergency Medicine
DX: K11.5 Sialolithiasis (principal); J45.909 Unspecified asthma, uncomplicated; F17.200 Nicotine dependence, unspecified, uncomplicated
CPT/HCPCS: 99282

== ENCOUNTER 2022-10-06 01:47 | Emergency (ER) | payer MEDICAID, SELFPAY ==
[2022-10-06 01:48] VITALS: BP 122/73; PULSE 74; RESP 16; TEMP 36.1; O2SAT 100; BMI 21.8
--- NOTE | 2022-10-06 02:00 | CT_ITS ---
INDICATION: abd pain -- IV PO Contrast DIARRHEA,ABD CRAMPING AND VOMITING X 1 WEEK HX:CERVICAL CANCER WITH HYSTERECTOMY-HAS OVARIES,ASTHMA EXAMINATION: CT ABDOMEN AND PELVIS WITH CONTRAST - CT Abdomen And Pelvis W/ Contrast Injection TECHNIQUE: Helically acquired images were obtained of the abdomen and pelvis following IV contrast. A radiation dose optimization technique was used for this scan. IV Contrast dosage and agent: Oral contrast: With. COMPARISON: None. FINDINGS: LOWER CHEST: Unremarkable. LIVER: Heterogeneous. Small low-attenuation structures in the right lobe too small to characterize. Mild periportal edema most likely related to IV fluid hydration. GALLBLADDER/BILE DUCTS: Unremarkable. PANCREAS: Unremarkable. SPLEEN: Unremarkable. ADRENAL GLANDS: Unremarkable. KIDNEYS / URETERS: Unremarkable. BOWEL / MESENTERY: Unremarkable. No bowel obstruction. APPENDIX: Identified and normal. No evidence of acute appendicitis. PERITONEUM: No free air. Small amount of free fluid in the pelvis. VESSELS: Abdominal aorta is normal caliber. RETROPERITONEUM: Unremarkable. REPRODUCTIVE ORGANS: Uterus surgically absent. There is an elongated cystic structure in the right adnexa largest component 7.2 x 3.9 cm, possibly dilated fallopian tube versus adjacent ovarian cysts. Smaller cyst or follicle in the right ovary and also in the left ovary. BLADDER: Unremarkable. ABDOMINAL WALL: Unremarkable. BONES: No acute abnormality. OTHER: None. CT/Abdomen/Pelvis WITH Contrast IMPRESSION: Right adnexal 7 x 4 cm cystic structure ovarian cyst versus hydrosalpinx. Electronically Signed: Bessy Ribeiro MD at 4:35 EST ,
--- NOTE | 2022-10-06 02:02 | EX.ED.DYSGE1 ---
HPI History of Present Illness Chief Complaint: General Illness Informant: patient Onset/Context/Timing Onset: Weeks Timing: Waxes and wanes Narrative Narrative: Patient presents secondary to lower abdominal cramping with vomiting and diarrhea. She is had a couple syncopal episodes when she is having abdominal cramping and diarrhea. She states symptoms for started a month ago, seem to improve for a time and then have worsened again over the past week. No fever has been noted. PFSH PFSH Medical History Anemia Asthma Bartholin cyst Cervical cancer Smoker Home Medications mirtazapine 15 mg disintegrating tablet 15 mg PO QHS 02/04/21 [History Last Taken Unknown] dicyclomine 20 mg tablet 20 mg PO BID PRN abdominal cramping #14 tabs 10/06/22 [Rx Last Taken Unknown] naproxen 500 mg tablet (Naprosyn) 500 mg PO BID PRN pain #20 tabs 10/06/22 [Rx Last Taken Unknown] nitrofurantoin monohydrate/macrocrystals 100 mg capsule (Macrobid) 100 mg PO Q12H 7 days #14 caps 10/06/22 [Rx Last Taken Unknown] Allergy/AdvReac Type Severity Reaction Status Date / Time acetaminophen [From Vicodin] Allergy Hives Verified 10/06/22 08:05 amoxicillin Allergy Anaphylaxis Verified 10/06/22 08:05 hydrocodone [From Vicodin] Allergy Hives Verified 10/06/22 08:05 prednisone Allergy Swelling Verified 10/06/22 08:05 sulfamethoxazole Allergy Hives Verified 10/06/22 08:05 [From Bactrim] trimethoprim [From Bactrim] Allergy Hives Verified 10/06/22 08:05 Family History Mother Myocardial infarction History of hysterectomy Surgical History H/O LEEP History of hysterectomy Hx of section Social History Smoking Status: Current every day smoker tobacco type: cigarettes alcohol intake: never ROS ROS ED Constitutional Constitutional ED: Denies chills or fever(s) Eyes Eyes: Denies change in vision or discharge from eye(s) ENT ENT ED: Denies discharge from eye(s), rhinorrhea or sore throat Cardiovascular Cardiovascular: Denies chest pain or palpitations Respiratory/Chest Respiratory/Chest: Denies cough or dyspnea Gastrointestinal Gastrointestinal: Reports abdominal pain, diarrhea, nausea and vomiting Genitourinary Genitourinary ED: Denies dysuria Musculoskeletal Musculoskeletal: Denies back pain or extremity pain Integumentary Denies Abrasions or rash Neurologic Neurologic: Denies headache(s) or weakness Psychiatric Psychiatric: Denies anxiety or depression Allergic/Immunologic Allergic/Immunologic ED: Denies lip swelling or urticaria EXAM Physical Exam Const Vital Signs: 10/06/22 01:48 10/06/22 01:51 10/06/22 03:02 Temperature 97 F L Temperature Source Temporal Pulse Rate 74 62 Respiratory Rate 16 12 Respiratory Effort Normal Non-Labored Blood Pressure 122/73 H 116/76 Blood Pressure Mean 89 89 Pulse Ox 100 100 Oxygen Delivery Method Room Air Room Air 10/06/22 03:55 10/06/22 08:02 Temperature Temperature Source Pulse Rate 62 61 Respiratory Rate 16 16 Respiratory Effort Blood Pressure 117/75 119/68 Blood Pressure Mean 89 85 Pulse Ox 99 99 Oxygen Delivery Method Room Air Room Air Positive well nourished and well developed General Appearance ED: well developed HEENT Reports normocephalic and head/scalp atraumatic Eyes PERRL and EOMs intact bilaterally Neck supple Chest Wall inspection of chest normal and palpation of chest normal Resp normal respiratory effort and clear to auscultation bilaterally Cardio regular rate and regular rhythm GI non-tender Auscultation: hypoactive bowel sounds Palpation: soft Extremity normal to inspection Neuro oriented x3 and no sensory deficits noted Sensorium / Orientation: alert Motor Exam: strength 5/5 throughout Psych mental status grossly normal Skin no rashes or lesions noted MDM MDM MDM Narrative Medical decision making narrative: Patient is given Toradol and Zofran for pain along with IV fluids. Lab work and urinalysis obtained. CT scan of the abdomen and pelvis with p.o. and IV contrast ordered. Lab Data Attestation: I reviewed the patient's lab results. Labs: Laboratory Results - last 24 hr 10/06/22 10/06/22 10/06/22 02:25 02:25 03:45 WBC 8.7 RBC 4.86 Hgb 14.2 Hct 43.2 MCV 88.9 MCH 29.2 MCHC 32.9 RDW Std Deviation 41.1 RDW Coeff of Lefty 12.6 Plt Count 251 MPV 10.7 Immature Gran % (Auto) 0.300 Neut % (Auto) 49.0 Lymph % (Auto) 36.3 [place] % (Auto) 7.8 Eos % (Auto) 5.7 H Baso % (Auto) 0.9 Absolute Neuts (auto) 4.3 Absolute Lymphs (auto) 3.17 Nucleated RBC % 0 Sodium 140 Potassium 3.8 Chloride 110 H Carbon Dioxide 24.0 Anion Gap 6 BUN 12 Creatinine 0.63 Estim Creat Clear Calc 105.58 Est GFR (MDRD) Af Amer 135 Est GFR (MDRD) Non-Af 112 BUN/Creatinine Ratio 18.9 Glucose 99 Calcium 8.8 Total Bilirubin 0.20 Direct Bilirubin 0.10 AST 15 ALT 19 Alkaline Phosphatase 54 Total Protein 7.0 Albumin 3.8 Globulin 3.2 Lipase 159 Urine Color Yellow Urine Clarity Cloudy Urine pH 6.0 Ur Specific [place] 1.020 Urine Protein 30 H Urine Glucose (UA) Normal Urine Ketones Negative Urine Occult Blood 10 H Urine Nitrite Positive H Urine Bilirubin Negative Urine Urobilinogen Normal Ur Leukocyte Esterase 500 H Urine RBC 0-5 SEEN Urine WBC 50-100 SEEN Ur Squamous Epith Cells 10-25 SEEN Urine Bacteria 3+ Urine Mucus 0 SEEN Radiography Diagnostic Testing: Clinical Impression(s) from Imaging Studies Abdomen/Pelvis CT 10/06/22 02:00 IMPRESSION: Right adnexal 7 x 4 cm cystic structure ovarian cyst versus hydrosalpinx. Electronically Signed: Bessy Ribeiro MD at 4:35 EST , Pelvis Ultrasound 10/06/22 04:38 IMPRESSION: Again noted is a 7.5 x 6.2 x 3.8 cm anechoic fluid-filled tubular structure in the right adnexal region likely hydrosalpinx. It has not changed in appearance since the previous CT. No suspicious mural nodules are identified Sonographically normal right ovary Left ovary not visualized Uterus was previously removed Mild anechoic free fluid in the cul-de-sac Electronically Signed: Dago Nice MD at 8:23 EST , Treatment and Re-Evaluation Narrative: Stool studies were ordered but patient has not been able to provide a sample here. CBC is normal at 8.7 with no left shift. Chemistry studies unremarkable. LFTs are normal. Urinalysis is contaminated with 10-25 epithelial cells. She does have 50-100 white cells with 3+ bacteria and positive nitrates. She does not have any urinary symptoms. CT scan of the abdomen and pelvis reveals a right adnexal 7 x 4 cm cystic structure which may be ovarian cyst versus hydrosalpinx. Patient is sent for pelvic ultrasound. Pelvic ultrasound reveals evidence of hydrosalpinx. Patient's prior hysterectomy was performed in [place] and she does not follow with a local [employer]. I spoke with Dr. Martinez who is on-call for no [facility]. She would like to see the patient sometime within the next month. Because the patient does not have a uterus this limits the risk of PID. Because the patient does have positive nitrites with bacteria in her urine she would like me to cover her with an antibiotic for UTI. This has been explained to the patient. She is comfortable to plan. Discharge Plan Triage Chief Complaint: General Illness ED Provider: Zoë Hassan Dx/Rx/DC Orders Clinical Impression: Hydrosalpinx, Diarrhea, UTI (urinary tract infection), Vasovagal syncope Instructions: ED Diarrhea, Unknown Cause, ED Fainting, Vagal Reaction, ED Cystitis Female Adult Prescriptions: New naproxen [Naprosyn] 500 mg tablet 500 mg PO BID PRN (Reason: pain) Qty: 20 0RF dicyclomine 20 mg tablet 20 mg PO BID PRN (Reason: abdominal cramping) Qty: 14 0RF nitrofurantoin monohyd/m-cryst [Macrobid] 100 mg capsule 100 mg PO Q12H 7 Days Qty: 14 0RF Rx Instructions: must administer with a meal/food No Action mirtazapine 15 mg Tablet,Disintegrating 15 mg PO QHS Stand Alone Forms: ED Work / School Excuse Primary Care Provider: Care Physician,No Primary Referrals: Yenny Martinez MD [Med Staff - Active Staff] - 1-2 Weeks Care Physician,No Primary [Primary Care Provider] - Disposition Disposition: Home, Self Care
[2022-10-06] MEDS: Ondansetron 4 MG/2 ML Vial IV (02:17)
[2022-10-06] MEDS: Ketorolac 30 MG/ML Syringe IV (02:19)
[2022-10-06] MEDS: 0.9% Normal Saline 1,000 ML 1000 ML IV (02:21)
[2022-10-06 02:31] LABS: Absolute Lymphocyte Count 3.17 X10^3/uL (0.83-4.51); Absolute Neutrophil Count 4.3 X10^3/uL (2.0-7.7); Basophil# 0.08 X10^3/uL; Basophil% 0.9 % (0-1); Eosinophils% 5.7 % (0-5); Hematocrit 43.2 % (37-47); Hemoglobin 14.2 g/dL (12.0-15.0); Lymphocyte # 3.17 X10^3/ul (0.83-4.51); Lymphocyte % 36.3 % (19-41); Mean Corp Hgb Conc 32.9 g/dL (32-36); Mean Corpuscular Hgb 29.2 pg (27.0-32.0); Mean Corpuscular Volume 88.9 fL (81-99); Mean Platelet Vol. 10.7 fl (6.2-12.0); Monocyte# 0.68 X10^3/uL; Monocyte% 7.8 % (0-10); NRBC Flagged by Analyzer 0 % (0-5); Neutrophil # 4.28 X10^3/uL (2.7-7.7); Platelet Count 251 K/mm3 (150-450); RBC Distribution Width CV 12.6 % (11.6-14.6); RBC Distribution Width SD 41.1 fl (35.1-43.9); Red Blood Count 4.86 M/mm3 (4.2-5.4); White Blood Count 8.7 K/mm3 (4.4-11.0)
[2022-10-06 02:52] LABS: AST(SGOT) 15 U/L (15-37); Alanine Aminotransfer ALT/SGPT 19 U/L (13-56); Albumin, Serum 3.8 g/dL (3.2-5.0); Alkaline Phosphatase 54 U/L (45-117); Anion Gap 6 (5-15); BUN 12 mg/dL (7-18); BUN/Creat Ratio 18.9 RATIO (10-20); Calcium,Total 8.8 mg/dL (8.5-10.1); Chloride 110 mmol/L (98-107); Creatinine, Serum 0.63 mg/dL (0.55-1.02); EST Glomerular Filtration Rate 112 mL/min (>60); Est Glom Filt Rate - Afr Amer 135 mL/min (>60); Estimated Creatinine Clearance 105.58 ml/min; Globulin 3.2 g/dL (2.2-4.2); Glucose 99 mg/dL (74-106); Lipase 159 U/L (73-393); Potassium 3.8 mmol/L (3.5-5.1); Sodium Level 140 mmol/L (136-145)
[2022-10-06 03:02] VITALS: BP 116/76; PULSE 62; RESP 12; O2SAT 100
[2022-10-06 03:53] LABS: Color, Urine Yellow (Yellow); Glucose, Dipstick Normal (Normal); Ketone-Dipstick Negative (Negative); Leukocyte Esterase-Dipstick 500 /ul (Negative); Mucous, Urine 0 SEEN /hpf (<or=2+); Nitrite-Dipstick Positive (Negative); Occult Blood-Urine 10 /ul (Negative); Protein-Dipstick 30 mg/dl (Negative); Urine Bilirubin Dipstick Negative (Negative); Urine Clarity Cloudy (Clear); Urine Urobilinogen Normal (Normal)
[2022-10-06 03:55] VITALS: BP 117/75; PULSE 62; RESP 16; O2SAT 99
[2022-10-06 03:59] LABS: Bacteria 3+ /hpf (None Seen); Red Blood Cells-Urine 0-5 SEEN /hpf (0-5); White Blood Cells 50-100 SEEN /hpf (0-5)
[2022-10-06 04:00] LABS: Squamous Epithelial Cells - UA 10-25 SEEN /hpf (5-10)
--- NOTE | 2022-10-06 04:38 | US_ITS ---
INDICATION: Abdominal pain and cramping EXAMINATION: Ultrasound US Pelvis Non-OB Limited (eg bladder) TECHNIQUE: Transabdominal and transvaginal (for optimal evaluation of the adnexa) pelvic ultrasound was performed. Grayscale, spectral waveform, and color flow Doppler evaluation of the adnexa. Limited transvaginal study as patient was unable to tolerate the exam COMPARISON: CT scan from earlier today FINDINGS: UTERUS: Previously removed. RIGHT OVARY: Right ovary measures 4.1 x 3.8 x 2.5 cm. There is a tubular cystic structure adjacent to the right ovary with a similar appearance to the CT scan from earlier today. It measures 7.5 x 6.2 x 3.8 cm. I suspect this likely represents a hydrosalpinx, however a multiloculated para ovarian cyst could have a similar appearance. There are no suspicious mural nodules. There is a pseudoseptation on axial image 24 which I suspect is a fold, this also was noted on the previous CT. [employer] consultation recommended. LEFT OVARY: Not visualized FREE FLUID: Mild anechoic free fluid in the pelvis US/Pelvic (Non ) IMPRESSION: Again noted is a 7.5 x 6.2 x 3.8 cm anechoic fluid-filled tubular structure in the right adnexal region likely hydrosalpinx. It has not changed in appearance since the previous CT. No suspicious mural nodules are identified Sonographically normal right ovary Left ovary not visualized Uterus was previously removed Mild anechoic free fluid in the cul-de-sac Electronically Signed: Dago Nice MD at 8:23 EST ,
[2022-10-06] MEDS: 0.9% Normal Saline 1,000 ML 150 ML IV (04:47)
[2022-10-06 08:02] VITALS: BP 119/68; PULSE 61; RESP 16; O2SAT 99
[2022-10-06 08:57] VITALS: BP 111/73; PULSE 59; RESP 16; TEMP 36.8; O2SAT 99
[2022-10-06] MEDS: Nitrofurantoin Macrocrystals 100 MG Capsule PO (09:04)
== END 2022-10-06 09:13 | disposition home or self-care (01) ==
PROVIDERS: Emergency Provider Emergency Medicine; Visit Provider Emergency Medicine
DX: N70.11 Chronic salpingitis (principal); R19.7 Diarrhea, unspecified; N39.0 Urinary tract infection, site not specified; R55 Syncope and collapse; F17.210 Nicotine dependence, cigarettes, uncomplicated
CPT/HCPCS: 74177; 76856; 80048; 80076; 81001; 83690; 85025; 93005; 93976; 96361; 96374; 96375; 99285; J7030; Q9967; A4216; J2405

== ENCOUNTER 2023-02-13 14:03 | Emergency (ER) | payer MEDICAID, SELFPAY ==
[2023-02-13 14:03] VITALS: BP 104/80; PULSE 83; RESP 18; TEMP 36.1; O2SAT 100; BMI 20.5
--- NOTE | 2023-02-13 14:36 | EX.ED.DYSGE1 ---
HPI History of Present Illness Chief Complaint: Abd Pain Narrative Narrative: Patient is a 37-year-old female who is presenting to the ER with chief complaint of intermittent abdominal pain for the last 2 weeks. Also having almost daily nausea and vomiting with intermittent diarrhea as well. Patient does not have a uterus. She does have her gallbladder and appendix. Patient has no urinary complaints. No fever or chills. Patient says that she tried to make an appoint with her PCP, she cannot get in for a few weeks. Patient does not have a history of acid reflux or heartburn that she is aware of. Patient still has her gallbladder and appendix, no uterus. No flank pain or back pain. Patient's mother and friend are at bedside. No other acute complaints at this time. PFSH PFSH Medical History Anemia Asthma Bartholin cyst Cervical cancer Smoker Home Medications NK 02/13/23 [History Last Taken Unknown] Allergy/AdvReac Type Severity Reaction Status Date / Time acetaminophen [From Vicodin] Allergy Hives Verified 02/13/23 14:13 amoxicillin Allergy Anaphylaxis Verified 02/13/23 14:13 hydrocodone [From Vicodin] Allergy Hives Verified 02/13/23 14:13 prednisone Allergy Swelling Verified 02/13/23 14:13 sulfamethoxazole Allergy Hives Verified 02/13/23 14:13 [From Bactrim] trimethoprim [From Bactrim] Allergy Hives Verified 02/13/23 14:13 Family History Mother Myocardial infarction History of hysterectomy Surgical History H/O LEEP History of hysterectomy Hx of section Social History Smoking Status: Current every day smoker tobacco type: cigarettes alcohol intake: never ROS ROS ED ROS Narrative REVIEW OF SYSTEMS: Unless otherwise stated in this report the patient's positive and negative responses for review of systems for constitutional, eyes, ENT, cardiovascular, respiratory, gastrointestinal, neurological, , musculoskeletal, and integument systems and related systems to the presenting problem are either stated in the history of present illness or were not pertinent or were negative for the symptoms and/or complaints related to the presenting medical problem. EXAM Physical Exam Narrative Exam Narrative: Vital signs reviewed and patient is not hypoxic. General: The patient appears well and in no apparent distress. Patient is resting comfortably on cart. Not toxic, lethargic, or listless. Patient smells of tobacco products. Skin: Warm, dry, no pallor noted. There is no rash noted. Head: Normocephalic, atraumatic Eye: Normal conjunctiva, no drainage, EOMI. PERRL. Ears, Nose, Mouth, and Throat: oral mucosa is moist. Nares patent. Mouth without vesicles. Ear canals patent. Tm's without Erythema Cardiovascular: Regular Rate and Rhythm, no murmurs, gallops, or rubs Respiratory: Patient is in no distress, no accessory muscle use, lungs are clear to auscultation, no wheezing, rales or rhonchi Back: non-tender, no CVA tenderness bilaterally to percussion. NO CTLS midline or paracervicl tenderness to palpation. GI: Soft, diffuse mild no tenderness to palpation, no specific pain to the right upper quadrant right lower quadrant, no flank pain bilateral, no peritoneal signs. Bowel sounds x4, no masses appreciated. No rebound, guarding, or rigidity noted. No suprapubic tenderness to palpation. No rash. Musculoskeletal: The patient has full range of motion of all extremities and joints with no difficulty. Patient has no motor, no sensory deficits. Neurological: A&O x4, normal speech, no focal neurological deficits. Psychiatric: Cooperative Const Vital Signs: 02/13/23 14:03 Temperature 97 F L Temperature Source Temporal Pulse Rate 83 Respiratory Rate 18 Blood Pressure 104/80 Blood Pressure Mean 88 Pulse Ox 100 Oxygen Delivery Method Room Air [facility] Lab Data Labs: Laboratory Results - last 24 hr 02/13/23 02/13/23 02/13/23 14:35 14:35 14:35 WBC 8.2 RBC 4.89 Hgb 14.3 Hct 43.5 MCV 89.0 MCH 29.2 MCHC 32.9 RDW Std Deviation 40.6 RDW Coeff of Lefty 12.4 Plt Count 235 MPV 10.2 Immature Gran % (Auto) 0.200 Neut % (Auto) 57.5 Lymph % (Auto) 30.0 [place] % (Auto) 7.0 Eos % (Auto) 4.5 Baso % (Auto) 0.8 Absolute Neuts (auto) 4.7 Absolute Lymphs (auto) 2.47 Nucleated RBC % 0 Sodium 138 Potassium 3.9 Chloride 107 Carbon Dioxide 25.0 Anion Gap 6 BUN 14 Creatinine 0.53 L Estim Creat Clear Calc 124.88 Est GFR (MDRD) Af Amer 165 Est GFR (MDRD) Non-Af 136 BUN/Creatinine Ratio 26.2 H Glucose 89 Lactic Acid 0.6 Calcium 9.0 Total Bilirubin 0.50 AST 13 L ALT 18 Alkaline Phosphatase 50 Total Protein 6.9 Albumin 3.7 Globulin 3.2 Albumin/Globulin Ratio 1.2 Lipase 33 Radiography Chest X-Ray - ED: Read by ED Physician Diagnostic Testing: X-ray reading was done by Dr. Riley. Abdominal series shows no acute obstruction, air-fluid levels, or acute pathology. Chest x-ray shows no acute cardiopulmonary disease, infiltrate, no effusion. Treatment and Re-Evaluation :: Patient was given 1 L of IV fluid, patient was also given Zofran and Bentyl. Patient x-ray and lab work shows no acute findings. Patient will be sent home with prescription for Zofran and Bentyl. Patient will follow-up with PCP. No questions at disposition. Patient has an appointment in 2 weeks with PCP. Patient was also to use antacid medication and Maalox or Mylanta if needed. Discharge Plan Triage Chief Complaint: Abd Pain ED Provider: Tony Riley Dx/Rx/DC Orders Instructions: ED Abdominal Pain Unkn Cause Fem, ED Gastritis (Adult), ED Vomiting (Adult) Prescriptions: No Action NK Primary Care Provider: Julio Hernadez Referrals: Friend,Evangelista, DO [Med Staff - Active Staff] - Care Physician,No Primary [Non-Staff] - Activity Restrictions/Additional Instructions: Use [id number] Pepcid, Maalox or Mylanta. Increase fluids. Use Zofran and Bentyl as needed. Keep your PCP appointment in 2 weeks, follow-up with GI physician if needed. Disposition Disposition: Home, Self Care
[2023-02-13] MEDS: Ketorolac 15 MG/ML Vial IV (14:40)
[2023-02-13] MEDS: Ondansetron 4 MG/2 ML Vial IV (14:40)
[2023-02-13] MEDS: Dicyclomine 20 MG/2 ML Vial IM (14:41)
[2023-02-13] MEDS: 0.9% Normal Saline 1,000 ML 1000 ML IV (14:41)
[2023-02-13 14:47] LABS: Absolute Lymphocyte Count 2.47 X10^3/uL (0.83-4.51); Absolute Neutrophil Count 4.7 X10^3/uL (2.0-7.7); Basophil# 0.07 X10^3/uL; Basophil% 0.8 % (0-1); Eosinophil# 0.37 X10^3/uL; Eosinophils% 4.5 % (0-5); Hematocrit 43.5 % (37-47); Hemoglobin 14.3 g/dL (12.0-15.0); Lymphocyte # 2.47 X10^3/ul (0.83-4.51); Mean Corp Hgb Conc 32.9 g/dL (32-36); Mean Corpuscular Hgb 29.2 pg (27.0-32.0); Mean Platelet Vol. 10.2 fl (6.2-12.0); Monocyte# 0.58 X10^3/uL; NRBC Flagged by Analyzer 0 % (0-5); Neutrophil # 4.73 X10^3/uL (2.7-7.7); Neutrophil % 57.5 % (47-70); Platelet Count 235 K/mm3 (150-450); RBC Distribution Width CV 12.4 % (11.6-14.6); RBC Distribution Width SD 40.6 fl (35.1-43.9); Red Blood Count 4.89 M/mm3 (4.2-5.4); White Blood Count 8.2 K/mm3 (4.4-11.0)
[2023-02-13 15:05] LABS: ALB/GLOB Ratio 1.2 RATIO (0.9-2.4); AST(SGOT) 13 U/L (15-37); Alanine Aminotransfer ALT/SGPT 18 U/L (13-56); Albumin, Serum 3.7 g/dL (3.2-5.0); Alkaline Phosphatase 50 U/L (45-117); Anion Gap 6 (5-15); BUN 14 mg/dL (7-18); BUN/Creat Ratio 26.2 RATIO (10-20); Chloride 107 mmol/L (98-107); Creatinine, Serum 0.53 mg/dL (0.55-1.02); EST Glomerular Filtration Rate 136 mL/min (>60); Est Glom Filt Rate - Afr Amer 165 mL/min (>60); Estimated Creatinine Clearance 124.88 ml/min; Globulin 3.2 g/dL (2.2-4.2); Glucose 89 mg/dL (74-106); Lipase 33 U/L (13-75); Potassium 3.9 mmol/L (3.5-5.1); Protein, Total 6.9 g/dL (6.4-8.2); Sodium Level 138 mmol/L (136-145)
[2023-02-13 15:13] LABS: Lactic Acid 0.6 mmol/L (0.4-1.9)
--- NOTE | 2023-02-13 15:20 | RAD_ITS ---
EXAM: XR ABDOMEN, 2 VIEWS AND XR CHEST, 1 VIEW CLINICAL INDICATION: Pain TECHNIQUE: Frontal view of the chest, frontal view of the abdomen/pelvis and upright or decubitus view of the abdomen. COMPARISON: Chest radiograph 02/04/2021. FINDINGS: CHEST: LUNGS AND PLEURAL SPACES: Normal. No consolidation or edema. No pneumothorax. No effusion. HEART: Normal. Normal heart size. MEDIASTINUM: No mediastinal or hilar mass. ABDOMEN: INTRAPERITONEAL SPACE: No free air. GASTROINTESTINAL TRACT: Normal bowel gas pattern. ORGANS: Unremarkable as visualized. No organomegaly. No abnormal calcifications. TUBES, LINES AND DEVICES: None. BONES/JOINTS: No acute abnormality. SOFT TISSUES: No acute findings. RAD/Acute Abdomen Inc Chest IMPRESSION: Normal chest and abdominal series. Electronically Signed: Harish Jones MD at 16:07 EDT ,
[2023-02-13 16:14] VITALS: BP 113/62; PULSE 61; RESP 18; O2SAT 100
== END 2023-02-13 16:15 | disposition home or self-care (01) ==
PROVIDERS: Emergency Provider Emergency Medicine; PCP Student in an Organized Health Care Education/Training Program; Visit Provider Emergency Medicine
DX: R10.9 Unspecified abdominal pain (principal); Z90.710 Acquired absence of both cervix and uterus; R11.2 Nausea with vomiting, unspecified
CPT/HCPCS: 74022; 80053; 83605; 83690; 85025; 96361; 96372; 96374; 96375; 99283; J7030; J2405

== ENCOUNTER 2023-03-14 14:05 | Emergency (ER) | payer MEDICAID, SELFPAY ==
[2023-03-14 14:06] VITALS: BP 113/70; PULSE 85; RESP 14; TEMP 36.1; O2SAT 99; BMI 20.7
--- NOTE | 2023-03-14 14:45 | RAD_ITS ---
STUDY: X-RAY - RIGHT HAND REASON FOR EXAM: Female, 37 years old. Pain following injury. TECHNIQUE: 3 view(s) of the hand. COMPARISON: None. FINDINGS: Normal radiocarpal articulation. Normal distal radioulnar joint. Normal visualized carpal bones. Normal carpal articulations Normal carpometacarpal articulation of the thumb. Normal second through fifth carpometacarpal joints. Normal metacarpi. Normal metacarpophalangeal joint of the thumb. Normal interphalangeal joint of the thumb. Normal proximal and distal phalanges of the thumb. Normal metacarpophalangeal joints of the second through fifth fingers. Normal proximal and distal interphalangeal joints of the second through fifth fingers. Normal phalanges of the second through fifth fingers. The soft tissue structures are unremarkable. RAD/Hand Min 3 Views IMPRESSION: Normal x-ray examination of the hand. Electronically Signed: Michael Nation MD at 15:09 EDT ,
[2023-03-14] MEDS: oxyCODONE 5 MG Tablet PO (15:02)
[2023-03-14] MEDS: Diphth,Pertuss(Acell),Tet Vac 0.5 ML Vial IM (15:03)
--- NOTE | 2023-03-14 15:31 | EDS_ITS ---
HPI History of Present Illness Chief Complaint: Upper Extremity Injury Narrative Narrative: Patient presents with a right thumb injury after closing her car door into her hand. Most of her pain is at the tuft region and nail. No other injuries. Tetanus is not up-to-date [facility] Medical History Anemia Asthma Bartholin cyst Cervical cancer Smoker Home Medications dicyclomine 20 mg tablet 20 mg PO BID PRN abdominal pain #7 tabs 02/13/23 [Rx Last Taken Unknown] ondansetron 4 mg disintegrating tablet 4 mg PO Q4H PRN Nausea #7 tabs 02/13/23 [Rx Last Taken Unknown] Allergy/AdvReac Type Severity Reaction Status Date / Time acetaminophen [From Vicodin] Allergy Hives Verified 03/14/23 14:06 amoxicillin Allergy Anaphylaxis Verified 03/14/23 14:06 hydrocodone [From Vicodin] Allergy Hives Verified 03/14/23 14:06 prednisone Allergy Swelling Verified 03/14/23 14:06 sulfamethoxazole Allergy Hives Verified 03/14/23 14:06 [From Bactrim] trimethoprim [From Bactrim] Allergy Hives Verified 03/14/23 14:06 Family History Mother Myocardial infarction History of hysterectomy Surgical History H/O LEEP History of hysterectomy Hx of section Social History Smoking Status: Current every day smoker tobacco type: cigarettes alcohol intake: never ROS ROS ED ROS Narrative Past medical history: none Medications: Reviewed Social history: Noncontributory Review of systems: Musculoskeletal: Thumb injury as in HPI Skin: No abrasions or lacerations Neurological: No weakness or paresthesias Hematologic: No easy bleeding or easy bruising EXAM Physical Exam Narrative Exam Narrative: Physical exam General: Patient is anxious and somewhat tearful. Head: Normocephalic, Atraumatic Neck: No C-spine tenderness Cardiovascular: Normal distal pulses Back: Nontender, Normal Inspection. Extremities: Right thumb subungual hematoma and pain at the jason however there is some pain over the first metacarpal region. Normal strength and sensation otherwise Skin: No abrasions, no lacerations Neurological: Normal strength and sensation Const Vital Signs: 03/14/23 14:06 Temperature 97 F L Temperature Source Temporal Pulse Rate 85 Respiratory Rate 14 Blood Pressure 113/70 Blood Pressure Mean 84 Pulse Ox 99 Oxygen Delivery Method Room Air MDM MDM MDM Narrative Medical decision making narrative: Procedure note Incision and drainage Subungual hematoma Patient consent was obtained via verbal consent Alcohol was used to prep, I used an electrocautery device, Bovie to trephinate the nail. Patient tolerated procedure well. She had significant improvement. MDM: Right hand x-ray read by me as normal Patient has a subungual hematoma, this was relieved. She felt significant improvement. She has no evidence of a fracture. No evidence of infection currently therefore antibiotics are not needed. She appears well and I will discharge her in stable condition with reassurance. Radiography Diagnostic Testing: Clinical Impression(s) from Imaging Studies Hand X-Ray 03/14/23 14:45 IMPRESSION: Normal x-ray examination of the hand. Electronically Signed: Michael Nation MD at 15:09 EDT , Discharge Plan Triage Chief Complaint: Upper Extremity Injury ED Provider: Reilly Plascencia Dx/Rx/DC Orders Clinical Impression: Subungual hematoma, Contusion of thumb Instructions: ED Subungual Hematoma Prescriptions: No Action ondansetron 4 mg tablet,disintegrating 4 mg PO Q4H PRN (Reason: Nausea) Qty: 7 0RF dicyclomine 20 mg tablet 20 mg PO BID PRN (Reason: abdominal pain) Qty: 7 0RF Primary Care Provider: Julio Hernadez Referrals: Julio Hernadez DO [Primary Care Provider] - 3-5 Days Disposition Disposition: Home, Self Care
== END 2023-03-14 15:39 | disposition home or self-care (01) ==
PROVIDERS: Emergency Provider Emergency Medicine; PCP Student in an Organized Health Care Education/Training Program; Visit Provider Emergency Medicine
DX: S60.111A Contusion of right thumb with damage to nail, initial encounter (principal); L60.8 Other nail disorders; W23.2XXA Caught, crushed, jammed or pinched between a moving and stationary object, initial encounter; Y92.810 Car as the place of occurrence of the external cause; Z90.710 Acquired absence of both cervix and uterus; F17.210 Nicotine dependence, cigarettes, uncomplicated
CPT/HCPCS: 10140; 10060; 73130; 90715; 99282

== ENCOUNTER 2023-05-24 12:59 | Emergency (ER) | payer MEDICAID, SELFPAY ==
[2023-05-24 13:00] VITALS: BP 122/83; PULSE 81; RESP 16; TEMP 36.6; O2SAT 100; BMI 19.9
--- NOTE | 2023-05-24 14:13 | ED.RN ---
PT LWBS 1210
== END 2023-05-24 14:13 | disposition left against medical advice (07) ==
LOC: ED 14:17
PROVIDERS: PCP Student in an Organized Health Care Education/Training Program
DX: R42 Dizziness and giddiness (principal)

== ENCOUNTER 2023-12-17 09:59 | Emergency (ER) | payer MEDICAID, SELFPAY ==
[2023-12-17 10:00] VITALS: BP 127/85; PULSE 105; RESP 20; TEMP 36.6; O2SAT 99; BMI 22.2
--- NOTE | 2023-12-17 10:22 | CT_ITS ---
HISTORY: headache, vomiting. TECHNIQUE: Multiple axial images were obtained of the head without intravenous contrast. A radiation dose optimization technique was used for this scan. 229 images. COMPARISON: 01/06/2021. FINDINGS: BRAIN PARENCHYMA: No significant attenuation abnormality. No acute intra-axial hemorrhage. CSF SPACES: Cerebral ventricles, cortical sulci, and other extra-axial CSF spaces within normal limits in size for age. No midline shift or other significant mass effect. No acute extra-axial hemorrhage. OTHER: Intact calvarium. No significant air fluid levels in the paranasal sinuses or mastoid air cells. Unremarkable orbits. CT/Brain/Head without Contrast IMPRESSION: No acute intracranial process identified. Electronically Signed: Gloria Hardy MD at 11:42 EST ,
--- NOTE | 2023-12-17 10:24 | EX.ED.DYSGE1 ---
HPI History of Present Illness Chief Complaint: General Illness Detail of Chief Complaint: Headache, vomiting, shaking Narrative Narrative: Patient presents secondary to headache, nausea and vomiting, as well as shaking with intermittent episodes that initially started on December 05. She states that she was seen at [facility] at that time and had an unremarkable workup. They gave her Ativan which helped her shaking. She has followed up with a neurologist. She was initially placed on Aimovig, but did not have any improvement with this. Her doctor then put her on divalproex. She continues to have intermittent symptoms and states that she woke this morning at 4 AM not feeling well. PFSH [facility] Medical History Anemia Asthma Bartholin cyst Cervical cancer Smoker Home Medications lubiprostone 24 mcg capsule (Amitiza) 24 mcg PO BID #60 caps 03/23/23 [Rx Last Taken Unknown] Allergy/AdvReac Type Severity Reaction Status Date / Time amoxicillin Allergy Anaphylaxis Verified 12/17/23 10:02 hydrocodone [From Vicodin] Allergy Hives Verified 12/17/23 10:02 prednisone Allergy Swelling Verified 12/17/23 10:02 sulfamethoxazole Allergy Hives Verified 05/24/23 13:03 [From Bactrim] trimethoprim [From Bactrim] Allergy Hives Verified 12/17/23 10:02 Family History Mother Myocardial infarction History of hysterectomy Surgical History H/O LEEP History of hysterectomy Hx of section Social History Smoking Status: Current every day smoker tobacco type: cigarettes alcohol intake: never ROS ROS ED Constitutional Constitutional ED: Denies chills or fever(s) Eyes Eyes: Denies discharge from eye(s) ENT ENT ED: Denies discharge from eye(s), rhinorrhea or sore throat Cardiovascular Cardiovascular: Denies chest pain or palpitations Respiratory/Chest Respiratory/Chest: Denies cough or dyspnea Gastrointestinal Gastrointestinal: Reports diarrhea, nausea and vomiting; Denies abdominal pain Genitourinary Genitourinary ED: Denies dysuria Musculoskeletal Musculoskeletal: Reports myalgias; Denies back pain or extremity pain Integumentary Denies Abrasions or rash Neurologic Neurologic: Reports other Details: Tremors ; Denies headache(s) or weakness Psychiatric Psychiatric: Denies anxiety or depression Allergic/Immunologic Allergic/Immunologic ED: Denies lip swelling or urticaria EXAM Physical Exam Const Vital Signs: 12/17/23 10:00 12/17/23 11:27 12/17/23 11:32 Temperature 97.8 F Temperature Source Temporal Pulse Rate 105 H 80 Respiratory Rate 20 H 12 Respiratory Effort Normal Respiratory Pattern Normal Blood Pressure 127/85 H 111/67 Blood Pressure Mean 99 81 Pulse Ox 99 98 Oxygen Delivery Method Room Air Room Air Positive well nourished and well developed General Appearance ED: well developed HEENT Reports moist mucous membranes Eyes EOMs intact bilaterally Chest Wall inspection of chest normal and palpation of chest normal Resp normal respiratory effort and clear to auscultation bilaterally Cardio regular rate and regular rhythm GI non-tender Palpation: soft Extremity normal to inspection Neuro oriented x3 Neuro Narrative: Fine tremors noted to all extremities and trunk. Patient with purposeful movement of all extremities without difficulty. Psych Mood & Affect: anxious Skin no rashes or lesions noted MDM MDM MDM Narrative Medical decision making narrative: Patient placed on environmental monitoring technician. IV line initiated. Labwork obtained to evaluate for leukocytosis, anemia, and electrolyte derangement. CT scan of the head obtained to evaluate for bleed, mass, tumor, edema. Patient given dose of IV Ativan. History & Record Review Discussion w/independent historian: Patient Lab Data Attestation: I reviewed the patient's lab results. Labs: Laboratory Results - last 24 hr 12/17/23 12/17/23 10:55 12:30 WBC 11.9 H RBC 5.25 Hgb 15.1 H Hct 45.1 MCV 85.9 MCH 28.8 MCHC 33.5 RDW Std Deviation 38.3 RDW Coeff of Lefty 12.2 Plt Count 258 MPV 10.3 Immature Gran % (Auto) 0.400 Neut % (Auto) 75.9 H Lymph % (Auto) 16.8 L Gibson % (Auto) 4.6 Eos % (Auto) 1.6 Baso % (Auto) 0.7 Absolute Neuts (auto) 9.1 H Absolute Lymphs (auto) 2.01 Nucleated RBC % 0 Sodium 139 Potassium 3.8 Chloride 108 H Carbon Dioxide 22.0 Anion Gap 9 BUN 11 Creatinine 0.77 Estim Creat Clear Calc 85.54 Est GFR (MDRD) Af Amer 108 Est GFR (MDRD) Non-Af 89 BUN/Creatinine Ratio 14.3 Glucose 97 Calcium 9.6 Total Bilirubin 0.30 Direct Bilirubin 0.09 AST 11 L ALT 16 Alkaline Phosphatase 54 Total Protein 7.6 Albumin 4.0 Globulin 3.6 Lipase 34 Urine Color Yellow Urine Clarity Clear Urine pH 8.0 Ur Specific [place] 1.015 Urine Protein Negative Urine Glucose (UA) Normal Urine Ketones 15 H Urine Occult Blood Negative Urine Nitrite Negative Urine Bilirubin Negative Urine Urobilinogen Normal Ur Leukocyte Esterase Negative Urine RBC 0 SEEN Urine WBC 0 SEEN Ur Squamous Epith Cells 0 SEEN Urine Bacteria 0 SEEN Urine Mucus 0 SEEN Radiography Diagnostic Testing: Clinical Impression(s) from Imaging Studies Brain CT 12/17/23 10:22 IMPRESSION: No acute intracranial process identified. Electronically Signed: Gloria Hardy MD at 11:42 EST Reading Location ID and State: [facility] / [place] Tel , Service support , Treatment and Re-Evaluation :: As able to review the records from her visit to [place]. At that time she reported a history of chronic migraines had presented with a migraine and tremor. She had had previous MRIs in the past and had been on a couple different medications recently for her migraines from her neurologist. Her lab work was unremarkable. Her CT scan of the head revealed no acute process. Patient was given a migraine cocktail along with a dose of Ativan. Note stated that she was awakened at 3:30 AM and had reported improvement in her symptoms and was discharged home. Today CBC was a white count 11.9 with a hemoglobin concentrated at 15.1. Differential reveals a 76% neutrophil count. Chemistry studies are unremarkable. LFTs and lipase are normal. CT scan of the head today reveals no acute findings. After being given a dose of Ativan and IV fluids, she reports some improvement in her headache as well as her nausea. Her tremor is improved but she still has it. At this time she will be given Toradol, Compazine, and Benadryl. After being given Toradol, Compazine, and Benadryl patient is resting comfortably. She states her headache is resolved. She has no further tremors. She will be discharged home with family. I will refer her to Dr. Brunner for local neurology care. Return instructions are given. Family is comfortable to plan. Discharge Plan Triage Chief Complaint: General Illness ED Provider: Zoë Hassan Dx/Rx/DC Orders Clinical Impression: Migraine, Tremor, Vomiting Instructions: ED, Migraine (Classical) Prescriptions: No Action lubiprostone [Amitiza] 24 mcg capsule 24 mcg PO BID Qty: 60 5RF Primary Care Provider: Julio Hernadez Referrals: Julio Hernadez DO [Primary Care Provider] - Henry Brunner MD [Non-Staff -Ordering Privileges] - As soon as possible Disposition Disposition: Home, Self Care
[2023-12-17] MEDS: 0.9% Normal Saline (1000mL) 1,000 ML 150 ML IV (10:47)
[2023-12-17] MEDS: Lorazepam 2 MG/ML WCH Syringe 0.5 MG IV (10:49)
[2023-12-17 11:04] LABS: Absolute Lymphocyte Count 2.01 X10^3/uL (0.83-4.51); Absolute Neutrophil Count 9.1 X10^3/uL (2.0-7.7); Basophil# 0.08 X10^3/uL; Basophil% 0.7 % (0-1); Eosinophil# 0.19 X10^3/uL; Eosinophils% 1.6 % (0-5); Hematocrit 45.1 % (37-47); Hemoglobin 15.1 g/dL (12.0-15.0); Lymphocyte # 2.01 X10^3/ul (0.83-4.51); Lymphocyte % 16.8 % (19-41); Mean Corp Hgb Conc 33.5 g/dL (32-36); Mean Corpuscular Hgb 28.8 pg (27.0-32.0); Mean Corpuscular Volume 85.9 fL (81-99); Mean Platelet Vol. 10.3 fl (6.2-12.0); Monocyte# 0.55 X10^3/uL; Monocyte% 4.6 % (0-10); NRBC Flagged by Analyzer 0 % (0-5); Neutrophil # 9.05 X10^3/uL (2.7-7.7); Neutrophil % 75.9 % (47-70); Platelet Count 258 K/mm3 (150-450); RBC Distribution Width CV 12.2 % (11.6-14.6); RBC Distribution Width SD 38.3 fl (35.1-43.9); Red Blood Count 5.25 M/mm3 (4.2-5.4); White Blood Count 11.9 K/mm3 (4.4-11.0)
--- OUTSIDE RECORDS SUMMARY | 2023-12-17 11:08 | XMS RPT_ITS | CCD ---
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 patient arrived in infusion suite, rating pain 7/10, with mild nausea and no dizziness. Patient educated on medications to be administered and agreed to proceed. Benadryl given for sleep, periactin given for anxiety, zofran given for nausea. Patient rating pain 0/10, denying nausea, endorsing mild dizziness. Patient asleep for majority of infusion. Patient endorsing severe dizziness upon completion of infusion. ISIDRO Herrera ordered phenergan to pick up attendant at home pharmacy. Patient agreed to plan. 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 [facility] 10-31-2023 Note HNO ID: [id number] Author: KATIE NEW RN Service: ? Author Type: Registered Nurse Type: Progress Notes Filed: 10/31/2023 15:51 Note Text: 1030 Patient arrived in infusion suite, rating headache 8/10 pain, severe nausea and moderate dizziness. 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 Patient education provided for medications to be administered, patient agreed to proceed. Patient given IV benadryl for sleep. Zofran given for nausea/ pre-med for DHE. PRN zofran given for increased nausea Bp 96/54, recheck 99/60. Pt came in with moderate dizziness and Bp 127/79. JAMSHID notified Pts infusions complete. Pt tolerated infusion well. Pt rated headache 7/10. Pt stated mild nausea and no dizziness. Pt discharged from treatment room. [facility] 10-31-2023 Note HNO ID: [id number] Author: ZOË CROOKS APRN.CNP Service: ? Author Type: Nurse Practitioner Type: Progress Notes Filed: 10/31/2023 15:51 Note Text: Therapy Plan Information Ijeoma Ontiveros DIHYDROERGOTAMINE Treatment Start Date Most Recent Treatment Lead Provider Treatment Department Status Auth Status 10/21/2023 Not yet started Yonas Garcia MD [facility] Active Protocol DIHYDROERGOTAMINE - As of 10/21/2023 3:40 PM Created By Created On Updated By Updated On Expiration Information Yonas Garcia MD 10/21/2023 3:40 PM Yonas Garcia MD 10/21/2023 3:41 PM Signature expires after: 10/20/2024 Zoë Crooks APRN.PIPE OUT WORKER [facility] 10-21-2023 Note HNO ID: [id number] Author: YONAS GARCIA MD Service: ? Author Type: Physician Type: Progress Notes Filed: 10/21/2023 15:42 Note Text: Headache Clinic Date: October 21, 2023 Patient Name: Ijeoma Ontiveros Referring physician: Craig Hester [address] [facility] [address] Reason for Evaluation: Headaches Consultation requested by Dr. Hester for an opinion regarding headaches. My final recommendations will be communicated back to the requesting physician by way of shared Medical record or letter to requesting physician via US mail. HPI: The patient is a 38-year-old female with a history of cervical cancer status post hysterectomy, HPV, and well-controlled asthma being seen for headaches and other complaints. Patient states that in the past headaches were fairly infrequent although she does recall an episode of vision loss followed by a severe headache many years ago. Then about a year ago she started having worsening headaches and other symptoms as described below that have been worsening ever since. 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 It is holocephalic and throbbing with an intensity ranging from 8 out of 10-10 out of 10. It is present all the time as long as she is awake. She endorses constant photophobia, phonophobia, and nausea. She has vomiting on a near-daily basis. She also reports constant dizziness that she describes as a spinning sensation. In addition, she will get attacks where she will start feeling extremely dizzy and then developed word finding difficulty. The word finding difficulty last 20 to 30 minutes but the dizziness will last several days. She states that at times she will try to eat a few bites and then immediately have vomiting. She also intermittently sees zigzag lines. She endorsed significant heart racing, more notably when she stands up. She has a long history of anxiety and depression which have worsened in the setting of her ongoing symptoms. Her headaches are not positional. Nothing clearly makes them better except sleep. There are no clear triggers as symptoms are essentially constant. She has had to stop working. She denies any significant neck pain. She has been to the ED and got a migraine cocktail which provided transient benefit. She saw Dr. Hester on 07/04/2023. She was diagnosed with vestibular migraines as well as migraines with aura. She was tried on Topamax and amitriptyline. Amitriptyline seemed to help initially but was making her sleepy. She has also tried other medications as below. She had a brain MRI done on 08/02/2022 which was normal. 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 albuterol HFA (VENTOLIN HFA) 90 mcg/actuation inhaler Inhale 2 Puffs as instructed every 4 hours as needed. tiZANidine (ZANAFLEX) 4 mg tablet Take 1 tablet by mouth daily at bedtime. dicyclomine (BENTYL) 20 mg tablet Take by mouth. benzonatate (TESSALON PERLE) 100 mg capsule TAKE 2 CAPSULES BY MOUTH THREE TIMES DAILY NEEDED for cough naproxen (NAPROSYN) 500 mg tablet Take 500 mg by mouth twice daily with meals. No current facility-administered medications on file prior to visit. MEDICAL HISTORY PAST MEDICAL HISTORY Diagnosis Date Cancer (HCC) SURGICAL HISTORY PAST SURGICAL HISTORY Procedure Laterality Date SECTION HX HYSTERECTOMY HX FAMILY HISTORY Adopted ALLERGIES ALLERGIES Allergen Reactions Bactrim [Sulfametho* Hives Prednisone Swelling Vicodin [Hydrocodon* Hives REVIEW OF SYSTEMS: A 10-point review of systems was obtained and is negative except as per HPI above. KP review: Depression Screening 06/25/2023 10/14/2023 PHQ-2 Score 6 6 PHQ-9 Score 22 24 OLIVIA-2 Total Score 6 6 OLIVIA-7 Total Score 18 18 OLIVIA - 2/7 SCORES 06/25/2023 10/14/2023 OLIVIA-2 Score 6 6 OLIVIA-7 Score 18 18 No flowsheet data found. No flowsheet data found. No flowsheet data found. OBJECTIVE PHYSICAL EXAM: BP 113/71 Pulse 84 Wt 59 kg (130 lb) BMI 22.31 kg/m? Mental Status: Alert and oriented to person, place and time. Affect is normal. Speech is normal in rate, volume and articulation. Divine (more content not included)... [facility] 08-29-2023 Miscellaneous Notes Last office visit: 07/04/23 Next office visit: 10/24/23 PLAN: - MRI brain wwo - trial TPM for prevention, uptitrate as needed/tolerated, side effects reviewed - continue meclizine + zofran for rescue - f/u 3mo Please review and advise. Thank you, Amanda Lew August 29, 2023 7:07 AM documented in this encounter [facility] 08-16-2023 Miscellaneous Notes Images from the original note were not included. Craig Hester MD [facility] 1 hour ago (1:34 PM) Thanks for the update. Glad it was helping, sorry she has COVID. Hope she's recovering well. We can go back up faster this time: Take 10mg x3 days, then 20mg x3 days, then 30mg x3 days and then go back to the original titration schedule. Spoke to patient who was advised of provider's message and verbalized understanding. She will call back with an update when she is back up to 30 mg. Elavil x 3 days for further recommendations, or sooner with any questions or concerns. Patient calling with medication question for Dr. Hester. MATT: PLAN: - MRI brain wwo - trial TPM for prevention, uptitrate as needed/tolerated, side effects reviewed - continue meclizine + zofran for rescue - f/u 3mo MRI 08/03/23 Topiramate stopped 07/25 Elavil ordered 07/18/23 Medication question: Patient was evaluated and dx with Covid by [facility] on 08/11/23 and was advised to stop Elavil while using OTC medications (nyquil/dayquil) for covid supportive care. Patient wants to know how to re-start Elavil? Patient started Elavil on 07/18/23 at 10 mg. HS and had been increasing 10 mg. Weekly up to 50 mg. If needed. Patient was taking 30 mg. HS x 3 days prior to holding. She was starting to think it was improving frequency and intensity of migraines when she stopped due to Covid dx. Since she has not been taking Elavil, her headaches have returned to daily and are described as severe, causing vomiting and dizziness. Pain level: severe Vision changes: same Duration: same Other: nausea/ vomiting, dizziness during episode Frequency: currently daily Alleviating factors: tylenol, PRN Sleep, dark room While taking Elavil, patient denies she experienced sleepiness, worsening constipation, or diarrhea. Routing to provider for review and recommendations. documented in this encounter [facility] 08-02-2023 Note HNO ID: [id number] Author: Praveena Ramos RT(R) Service: ? Author Type: Technologist Type: Progress Notes Filed: 08/02/2023 3:34 PM Note Text: Radiology Service Progress Note DATE OF SERVICE: August 02, 2023 TIME: 3:34 PM PATIENT IDENTITY VERIFICATION COMPLETED USING TWO (2) STANDARD IDENTIFIERS: Name and Date of confirmed by patient verbally. FALL SCREENING: Has the patient had 2 falls in the last year or 1 fall with injury or currently using an Ambulatory Assistive Device (Walker, Cane, Wheelchair, Crutches, etc.)? No PATIENT GENDER DATA: Female. status: : No status: NO. PATIENT RELEVANT IMPLANT DATA REVIEWED: Yes ALLERGIES: Reviewed and unchanged CONTRAST ALLERGY: NO. EXAM: MRI - CONTRAST TYPE: GROUP II PERIPHERAL IV DATA: Ambulatory: A peripheral IV was started in the Right antecubital site with a Angio cath: 22 gauge. RADIOLOGY DEPARTMENT: MR; Exam(s) Completed: Head: Routine Brain SIGNATURE: RT Darlin(R) PATIENT NAME: Ijeoma Ontiveros DATE: August 02, 2023 TIME: 3:34 PM [facility] 08-02-2023 History of Presen t illness Narrative Radiology Service Progress Note DATE OF SERVICE: August 02, 2023 TIME: 3:34 PM PATIENT IDENTITY VERIFICATION COMPLETED USING TWO (2) STANDARD IDENTIFIERS: Name and Date of confirmed by patient verbally. FALL SCREENING: Has the patient had 2 falls in the last year or 1 fall with injury or currently using an Ambulatory Assistive Device (Walker, Cane, Wheelchair, Crutches, etc.)? No PATIENT GENDER DATA: Female. status: : No status: NO. PATIENT RELEVANT IMPLANT DATA REVIEWED: Yes ALLERGIES: Reviewed and unchanged CONTRAST ALLERGY: NO. EXAM: MRI - CONTRAST TYPE: GROUP II PERIPHERAL IV DATA: Ambulatory: A peripheral IV was started in the Right antecubital site with a Angio cath: 22 gauge. RADIOLOGY DEPARTMENT: MR; Exam(s) Completed: Head: Routine Brain SIGNATURE: RT Darlin(R) PATIENT NAME: Ijeoma Ontiveros DATE: August 02, 2023 TIME: 3:34 PM documented in this encounter [facility] 07-18-2023 Miscellaneous Notes Images from the original note were not included. Craig Hester MD You 23 minutes ago (2:36 PM) Ok. I'll put in a low starting dose 10mg at bedtime and she can gradually increase if needed. Appreciate updates on how she does with it Patient advised of provider's message and recommendations and verbalized agreement. Advised to call us with update or sooner with any questions or concerns. Addended by: CARIG HESTER on: 07/18/2023 02:37 PM Modules accepted: Orders Images from the original note were not included. Note Craig Hester MD You 1 hour ago (12:13 PM) Thanks for the update. I'm sorry it's making her feel worse. Please have her go back to 25mg for this week and then stop. Other options we can try: - periactin: an anti-histamine, may cause sleepiness. - elavil (amitritpyline): an anti-depressant commonly used for headaches or pain. Can cause sleepiness, constipation, diarrhea - gabapentin: may cause sleepiness - baclofen or tizanidine: muscle relaxants that can cause sleepiness Which would she like to try next? I'll refill the zofran. Spoke to patient who was advised of provider's recommendations and verbalized understanding. She will decrease to 25 mg. Of Topamax HS for seven days then discontinue on 07/18/23. Patient would like to try Elavil. She agrees to call back with new, worsening symptoms, or any questions or concerns. Addended by: CRAIG HESTER on: 07/18/2023 12:14 PM Modules accepted: Orders Spoke to patient who c/o worsening nausea with emesis since increasing dose of Topamax to 50 mg. Daily on 07/11/23. Patient has reported feeling nauseous and has vomited daily for last week. Symptoms: Nausea with emesis increasing in frequency Tiredness increasing Dizziness: slight improvement, down to 3 days in last Other symptoms: Headache with dizziness on Tuesday, flushing and palpitations on Tuesday for about one hour, not present currently. Alleviating factors: Rest and abortive medications. She is out of Zofran, usually that helps with nausea. Meclizine: took Tuesday07/16/23 with onset of headache with dizziness and had some improvement. Patient cannot report her BPs or pulse at home. She denies skin rash, fever, pruritis, difficulty breathing, swelling of mouth, face, lips, tongue, or throat. Patient is suppose to increase Topamax to 75 mg. Tomorrow 07/19/23. Routing to provider for review and recommendations. Patient was put on Topamax 25mg and was told to call in if there were any issues. Patient stated the she is doing worse, the nausea is becoming worse to the point where she is unable to go to work. Also when she wakes up she just feels tired and disorientated. Patient was told that she could switch medication if the symptoms became worse or did not help. Please call patient at [phone]. Thank you! documented in this encounter [facility] 07-04-2023 Note HNO ID: [id number] Author: Craig Hester MD Service: ? Author Type: Physician Type: Progress Notes Filed: 07/04/2023 10:03 AM Note Text: General Neurology Outpatient Clinic - new patient evaluation Date: July 04, 2023 Patient Name: Ijeoma Ontiveros Referring physician: No referring provider defined for this encounter. Primary physician: To use this Smartlink, specify the provider ID whose address you want to display, e.g., .[email or web address][1 (where 1 is the provider ID). Reason for Evaluation: Dizziness HPI: The pt is a 38yo Right handed female with hx of - cervical cancer Presenting for evaluation of dizziness. Accompanied by her friend Per patient, she has no prior history of migraines, headaches, or neurological symptoms. She's seen ENT for her current symptoms who referred her to neurology. No preceding head trauma, illness, new medicines. Started more gradually with symptoms every 1-2 months but now has increased to 2-3x/week. Description of dizziness: starts with cloudy head sensation -> extreme dizziness -> nausea and emesis -> can't focus, trouble speaking, can't get words out, can't think of words she wants to say. If she is able to speak, words are slurred, are the wrong words, and she sounds 'drunk' Associated with: see above Aura: yes, visual: over the last month, has had 2-3 episodes of black and white jagged zig zag lines starting on right visual field that goes across vision, lasts 15-20min, followed by milder lightheadedness Time to peak pain: 10-15min to speech symptoms Duration: 1 day, takes another 2-3 days to recover Frequency: 2-3x/week Triggers: unknown Alleviating factors: sleep Menstrual pattern: n/a, s/p hysterectomy for cervical cancer Previous preventives: none Current preventives: none Previous abortive: none Current abortive: miclizine + zofran (puts her to sleep) She's had to miss work for these symptoms so it's having adverse impact on quality of life. 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 Symptoms have also occurred while driving and she's had to assembler for puller over machine or have someone pick her up. She was adopted at age 5. She doesn't known paternal family history. Her mother is not a reliable historian so she's not sure what her mother actually has. No known hx of personal head trauma, seizures, strokes OUTPATIENT MEDICATIONS Current Outpatient Medications on File Prior to Visit Medication Sig dicyclomine (BENTYL) 20 mg tablet Take by mouth. ondansetron orally disintegrating (ZOFRAN ODT) 4 mg disintegrating tablet Take 4 mg by mouth. benzonatate (TESSALON PERLE) 100 mg capsule TAKE 2 CAPSULES BY MOUTH THREE TIMES DAILY NEEDED for cough naproxen (NAPROSYN) 500 mg tablet Take 500 mg by mouth twice daily with meals. albuterol HFA (VENTOLIN HFA) 90 mcg/actuation inhaler Inhale 2 Puffs as instructed every 4 hours as needed. No current facility-administered medications on file prior to visit. MEDICAL HISTORY PAST MEDICAL HISTORY Diagnosis Date Cancer (HCC) SURGICAL HISTORY PAST SURGICAL HISTORY Procedure Laterality Date SECTION HX HYSTERECTOMY HX SOCIAL HISTORY Social History Tobacco Use Smoking status: Every Day Packs/day: .5 Types: Cigarettes Smokeless tobacco: Never Vaping Use Vaping Use: Some days Substances: Nicotine, Flavoring Substance Use Topics Alcohol use: Not Currently Drug use: Not Currently FAMILY HISTORY No family history on file. ALLERGIES ALLERGIES Allergen Reactions Bactrim [Sulfametho* Hives Prednisone Swelling Vicodin [Hydrocodon* Hives REVIEW OF SYSTEMS: No fevers, chills No chest pain No SOB Some constipation after Feb abdominal surgery, mostly resolved No paresthesias No falls No head trauma See HPI PHYSICAL EXAM: BP 113/70 Pulse 77 Wt 55.7 kg (122 lb 12.8 oz) SpO2 100% BMI 21.08 kg/m? General appearance: Well appearing, alert, in no acute distress Head: Normocephalic, atraumatic. Neurological exam: Mental Status: Alert, oriented to person, place and time and Follows commands. Cranial Nerves: PERRL, visual akers intact to confrontation, extraocular movements intact though non-smooth pursuit, facial sensation intact, face symmetric, no facial droop or ptosis, hearing intact to finger rub bilaterally, no dysarthria, palate elevate symmetrically, tongue protrudes midline, and shoulder shrug intact and symmetric. Motor: Right Upper: Left Upper: Deltoid: 5 Deltoid: 5 Triceps: 5 Triceps: 5 Biceps: 5 Biceps: 5 Painter Supervisor: 5 Painter Supervisor: 5 Finger abduction: 5 Finger abduction: 5 Finger adduction: 5 Finger adduction: 5 Right Lower: Left Lower: Iliopsoas: 5 Iliopsoas: 5 Knee flexor: 5 Knee flexor: 5 Knee extensor: 5 Knee extensor: 5 Dorsiflexion: 5 Dorsiflexion: 5 Plantarflexion: 5 Plantarflexion: 5 Motor Tone: Right Upper: Normal tone Left Upper: Normal tone Right Lower: Normal tone Left Lower: N (more content not included)... [facility] 07-04-2023 Instructions Craig Hester MD - 07/04/2023 9:48 AM EDT Your vision symptoms are most likely ocular migraines, also called visual auras The other symptoms are likely a vestibular migraine. During a migraine, the electricity in your brain actually slows down causing all sorts of odd symptoms including your speech ones. It takes time for th electricity to normalize again which is why it takes a few more days for you to recover We're going to get a MRI of the brain to make sure nothing is causing this sudden onset of symptoms. We're also going to try a daily medicine with the goal of reducing symptoms by at least 50% We'll start with topamax at bedtime. You'll slowly increase the dose over the next month. If you do fine on a lower dose, you do not have to keep increasing it. Common side effects: dizziness, sleepiness, numbness/tingling, weight loss, word finding difficulties, brain fog We can always change medicines if this one is not a good fit documented in this encounter [facility] 07-04-2023 History of Presen t illness Narrative Images from the original note were not included. General Neurology Outpatient Clinic - new patient evaluation Date: July 04, 2023 Patient Name: Ijeoma Ontiveros Referring physician: No referring provider defined for this encounter. Primary physician: To use this Smartlink, specify the provider ID whose address you want to display, e.g., .[email or web address][1 (where 1 is the provider ID). Reason for Evaluation: Dizziness HPI: The pt is a 38yo Right handed female with hx of - cervical cancer Presenting for evaluation of dizziness. Accompanied by her friend Per patient, she has no prior history of migraines, headaches, or neurological symptoms. She's seen ENT for her current symptoms who referred her to neurology. No preceding head trauma, illness, new medicines. Started more gradually with symptoms every 1-2 months but now has increased to 2-3x/week. Description of dizziness: starts with cloudy head sensation -> extreme dizziness -> nausea and emesis -> can't focus, trouble speaking, can't get words out, can't think of words she wants to say. If she is able to speak, words are slurred, are the wrong words, and she sounds 'drunk' Associated with: see above Aura: yes, visual: over the last month, has had 2-3 episodes of black and white jagged zig zag lines starting on right visual field that goes across vision, lasts 15-20min, followed by milder lightheadedness Time to peak pain: 10-15min to speech symptoms Duration: 1 day, takes another 2-3 days to recover Frequency: 2-3x/week Triggers: unknown Alleviating factors: sleep Menstrual pattern: n/a, s/p hysterectomy for cervical cancer Previous preventives: none Current preventives: none Previous abortive: none Current abortive: miclizine + zofran (puts her to sleep) She's had to miss work for these symptoms so it's having adverse impact on quality of life. 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 Symptoms have also occurred while driving and she's had to assembler for puller over machine or have someone pick her up. She was adopted at age 5. She doesn't known paternal family history. Her mother is not a reliable historian so she's not sure what her mother actually has. No known hx of personal head trauma, seizures, strokes OUTPATIENT MEDICATIONS Current Outpatient Medications on File Prior to Visit Medication Sig dicyclomine (BENTYL) 20 mg tablet Take by mouth. ondansetron orally disintegrating (ZOFRAN ODT) 4 mg disintegrating tablet Take 4 mg by mouth. benzonatate (TESSALON PERLE) 100 mg capsule TAKE 2 CAPSULES BY MOUTH THREE TIMES DAILY NEEDED for cough naproxen (NAPROSYN) 500 mg tablet Take 500 mg by mouth twice daily with meals. albuterol HFA (VENTOLIN HFA) 90 mcg/actuation inhaler Inhale 2 Puffs as instructed every 4 hours as needed. No current facility-administered medications on file prior to visit. MEDICAL HISTORY PAST MEDICAL HISTORY Diagnosis Date Cancer (HCC) SURGICAL HISTORY PAST SURGICAL HISTORY Procedure Laterality Date SECTION HX HYSTERECTOMY HX SOCIAL HISTORY Social History Tobacco Use Smoking status: Every Day Packs/day: .5 Types: Cigarettes Smokeless tobacco: Never Vaping Use Vaping Use: Some days Substances: Nicotine, Flavoring Substance Use Topics Alcohol use: Not Currently Drug use: Not Currently FAMILY HISTORY No family history on file. ALLERGIES ALLERGIES Allergen Reactions Bactrim [Sulfametho* Hives Prednisone Swelling Vicodin [Hydrocodon* Hives REVIEW OF SYSTEMS: No fevers, chills No chest pain No SOB Some constipation after Feb abdominal surgery, mostly resolved No paresthesias No falls No head trauma See HPI PHYSICAL EXAM: BP 113/70 Pulse 77 Wt 55.7 kg (122 lb 12.8 oz) SpO2 100% BMI 21.08 kg/m General appearance: Well appearing, alert, in no acute distress Head: Normocephalic, atraumatic. Neurological exam: Mental Status: Alert, oriented to person, place and time and Follows commands. Cranial Nerves: PERRL, visual akers intact to confrontation, extraocular movements intact though non-smooth pursuit, facial sensation intact, face symmetric, no facial droop or ptosis, hearing intact to finger rub bilaterally, no dysarthria, palate elevate symmetrically, tongue protrudes midline, and shoulder shrug intact and symmetric. Motor: Right Upper: Left Upper: Deltoid: 5 Deltoid: 5 Triceps: 5 Triceps: 5 Biceps: 5 Biceps: 5 Painter Supervisor: 5 Painter Supervisor: 5 Finger abduction: 5 Finger abduction: 5 Finger adduction: 5 Finger adduction: 5 Right Lower: Left Lower: Iliopsoas: 5 Iliopsoas: 5 Knee flexor: 5 Knee flexor: 5 Knee extensor: 5 Knee extensor: 5 Dorsiflexion: 5 Dorsiflexion: 5 Plantarflexion: 5 Plantarflexion: 5 Motor Tone: Right Upper: Normal tone Left Upper: Normal tone Right Lower: Normal tone Left Lower: Normal tone Reflexes: 2/4 biceps, brachioradialis. 3/4 patellars with mild spreading. 4/4 ankles with 1 beat nonsustained clonus bilaterally. Downgoing plantars Sensation: intact BUE and BLE to touch, temperature, vibration, proprioception Coordination: Finger-to- nose-finger intact bilaterally and Mzzj-iy-ihoq intact bilaterally. Gait: normal-based. Independent tiptoe, heel, tandem gait Romberg: neg LABS/DATA: Component Latest Ref Rng & Units 02/18/2023 WBC 3.70 - 11.00 k/uL 9.44 RBC 3.90 - 5.20 m/uL 4.97 Hemoglobin 11.5 - 15.5 g/dL 14.5 Hematocrit 36.0 - 46.0 % 44.6 MCV 80.0 - 100.0 fL 89.7 MCH 26.0 - 34.0 pg 29.2 MCHC 30.5 - 36.0 g/dL 32.5 RDW-CV 11.5 - 15.0 % 12.6 Platelet Count 150 - 400 k/uL 219 MPV 9.0 - 12.7 fL 10.4 Neut% % 67.2 Abs Neut (ANC) 1.45 - 7.50 k/uL 6.35 Lymph% % 22.4 Abs Lymph 1.00 - 4.00 k/uL 2.11 [place]% % 6.8 Abs [place] <0.87 k/uL 0.64 Eosin% % 2.8 Abs Eosin <0.46 k/uL 0.26 Baso% % 0.6 Abs Baso <0.11 k/uL 0.06 Immature Gran % % 0.2 IMMATURE GRANS (ABS) <0.10 k/uL <0.03 DTYPE Auto Protein, Total 6.3 - 8.0 g/dL 7.3 Albumin 3.9 - 4.9 g/dL 4.6 Calcium 8.5 - 10.2 mg/dL 9.2 Bilirubin, Total 0.2 - 1.3 mg/dL 0.3 Alkaline Phosphatase 34 - 123 U/L 58 AST 13 - 35 U/L 16 ALT 7 - 38 U/L 12 Glucose 74 - 99 mg/dL 92 BUN 7 - 21 mg/dL 11 Creatinine 0.58 - 0.96 mg/dL 0.60 Sodium 136 - 144 mmol/L 138 Potassium 3.7 - 5.1 mmol/L 4.2 Chloride 97 - 105 mmol/L 104 CO2 22 - 30 mmol/L 26 Anion Gap 9 - 18 mmol/L 8 (L) eGFR >=60 mL/min/1.73m 119 IMAGIN12/19/15 CT Brain wo ([facility]) CT images were obtained in the axial plane with 2.5-mm collimation from the foramen magnum through the vertex of the skull with both soft tissue and bony windows reviewed. There is no midline shift. There is no mass effect seen. There is no evidence of intracranial hemorrhage. The cook-white matter differentiation is preserved. There are no intra or extra-axial fluid collections identified. The ventricular and cisternal systems are unremarkable. The fourth ventricle is midline in position without mass effect. There are no infarcts observed. Soft tissues: The soft tissues of the head appear unremarkable. Bony structures: There is no evidence of a depressed skull fracture. Sinuses: The paranasal sinuses appear clear. The mastoid air cells are clear of fluid. 12/19/15 XR C spine ([facility]) The cervical spine is in good anatomical alignment without evidence of an acute fracture, or spondylolisthesis. The prevertebral soft tissues and posterior elements are unremarkable. ASSESSMENT: The pt is a 38 year old female with a history of cervical cancer who presents with new onset vestibular migraines with increasing frequency x1 year and episodic ocular migraines x1 mo. Her neurological examination is significant for mild hyper-reflexia. Given new onset of migrainous symptoms with no clear trigger, neuro-imaging is indicated to r/o secondary pathology. Frequency of symptoms is an indication for daily preventive medicine. Discussed that it's trial and error to find the best fit, patient expressed understanding and willingness to try. PLAN: - MRI brain wwo - trial TPM for prevention, uptitrate as needed/tolerated, side effects reviewed - continue meclizine + zofran for rescue - f/u 3mo I spent a total of 50 minutes on the date of the service which included preparing to see the patient, yssm-to-qxmh patient care, completing clinical documentation, obtaining and/or reviewing separately obtained history, performing a medically appropriate examination, counseling and educating the patient/family/caregiver, ordering medications, tests, or procedures, independently interpreting results (not separately reported), and care coordination (not separately reported). Craig Hester MD Staff, General Neurology Pager: [phone] CC: Referring Physician: No referring provider defined for this encounter. PCP: To use this Smartlink, specify the provider ID whose address you want to display, e.g., .[email or web address] (where 1 is the provider ID). documented in this encounter [facility] 02-18-2023 Note HNO ID: [id number] Author: Lillian Aguilera APRN.PIPE OUT WORKER Service: ? Author Type: Nurse Practitioner Type: Progress Notes Filed: 02/18/2023 9:31 AM Note Text: Patient came in with complaints of severe abdominal pain. Patient says about 4 days ago she went to the ER. Patient says the ER did an x-ray and some lab work and told her to follow-up with GI. Patient says it is hurting significantly worse. Patient is having chills. Patient is vomiting. Patient is extremely tender on that left lower quadrant. Barely palpated patient came up off the table. Patient is guarding when walking. At this time patient is being sent to the ER for full evaluation. [place] was called and given quick rundown. Patient's friends again to take her now. [facility] 02-18-2023 History of Presen t illness Narrative Patient came in with complaints of severe abdominal pain. Patient says about 4 days ago she went to the ER. Patient says the ER did an x-ray and some lab work and told her to follow-up with GI. Patient says it is hurting significantly worse. Patient is having chills. Patient is vomiting. Patient is extremely tender on that left lower quadrant. Barely palpated patient came up off the table. Patient is guarding when walking. At this time patient is being sent to the ER for full evaluation. [place] was called and given quick rundown. Patient's friends again to take her now. documented in this encounter [facility] 11-26-2022 Hospital Discharg e instructions Patient Education 11/26/2022 14:09:29 Pelvic Mass, Female Pelvic Mass, Female A pelvic mass is an abnormal growth in the pelvis. The pelvis is the area between your hip bones. It includes the bladder, rectum, uterus, and ovaries. A pelvic mass may be found during a routine pelvic exam or while performing an MRI, CT scan, or ultrasound for other problems of the abdomen. What are common types of pelvic masses? Pelvic masses include: Ovarian cysts. These are fluid-filled sacs that form on an ovary. Tumors. These may be cancerous (malignant) or noncancerous (benign). Noncancerous tumors in the uterus are called uterine fibroids. Ectopic . This is when the fertilized egg attaches (implants) outside the uterus. Infections. What type of testing may be needed? Your health care provider may recommend that you have tests to diagnose the cause of the pelvic mass. The following tests may be done if a pelvic mass is found: Physical exam. Blood tests. X-rays. Ultrasound. CT scan. MRI. A surgery to look inside your abdomen with cameras (laparoscopy). A biopsy that is performed with a needle or during laparoscopy or surgery. In some cases, what seemed like a pelvic mass may actually be something else, such as a mass in one of the organs that is near the pelvis, an infection (abscess), or scar tissue (adhesions) that formed after a surgery. Tests and physical exams may be done once, or they may be done regularly for a period of time. Tests and exams that are done regularly will help monitor whether the mass or tissue change is growing and becoming a concern. What are common treatments? Treatment is not always needed for this condition. Your health care provider may recommend careful monitoring (watchful waiting) and regular tests and exams. Treatment will depend on the cause of the mass. Follow these instructions at home: What you need to do at home will depend on the cause of the mass. Follow the instructions that your health care provider gives to you. In general: ?Keep all follow-up visits as directed by your health care provider. This is important. ?Take jegn-uqw-itsujlw and prescription medicines only as directed by your health care provider. ?If you were prescribed an antibiotic medicine, take it as told by your health care provider. Do not stop taking the antibiotic even if you start to feel better. ?Follow any restrictions that are given to you by your health care provider. Try to stay calm, and be sure to ask questions. Make sure you understand the recommendations for monitoring and whether there is a reason for concern. Contact a health care provider if you: Develop new symptoms. Note changes in the size, shape, or position of your mass. Are unable to have a bowel movement. Bruise or bleed easily. Get help right away if you: Vomit bright red blood or vomit material that looks like coffee grounds. Have blood in your stools, or the stools turn black and tarry. Have an abnormal or increased amount of vaginal bleeding. Have a fever or chills. Develop sudden or worsening pain that is not relieved by medicine. Feel dizzy or weak. Feel light-headed or you faint. Feel that the mass has suddenly gotten larger. Develop severe bloating in your abdomen or your pelvis. Cannot pass any urine. Summary A pelvic mass is an abnormal growth in the pelvis. The pelvis is the area between your hip bones. It includes the bladder, rectum, uterus, and ovaries. Pelvic masses include ovarian cysts, tumors, ectopic , or infections. Your health care provider may recommend that you have tests to diagnose the cause of the pelvic mass. Treatment will depend on the cause of the mass. This information is not intended to replace advice given to you by your health care provider. Make sure you discuss any questions you have with your health care provider. Document Released: 01/03/2008 Document Revised: 10/18/2018 Document Reviewed: 10/18/2018 [email or web address] Patient Education 2020 [employer] 11/26/2022 14:09:00 Nausea and Vomiting, Adult, Uozh-si-Qnuw Nausea and Vomiting, Adult Nausea is feeling sick to your stomach or feeling that you are about to throw up (vomit). Vomiting is when food in your stomach is thrown up and out of the mouth. Throwing up can make you feel weak. It can also make you lose too much water in your body (get dehydrated). If you lose too much water in your body, you may: Feel tired. Feel thirsty. Have a dry mouth. Have cracked lips. Go pee (urinate) less often. Older adults and people with other diseases or a weak body defense system (immune system) are at higher risk for losing too much water in the body. If you feel sick to your stomach and you throw up, it is important to follow instructions from your doctor about how to take care of yourself. Follow these instructions at home: Watch your symptoms for any changes. Tell your doctor about them. Follow these instructions to care for yourself at home. Eating and drinking Take an ORS (oral rehydration solution). This is a drink that is sold at pharmacies and stores. Drink clear fluids in small amounts as you are able, such as: ?Water. ?Ice chips. ?Fruit juice that has water added (diluted fruit juice). ?Low-calorie sports drinks. Eat bland, eqqv-im-dqvmnw foods in small amounts as you are able, such as: ?Bananas. ?Applesauce. ?Rice. ?Low-fat (lean) meats. ?[place]. ?Crackers. Avoid drinking fluids that have a lot of sugar or caffeine in them. This includes energy drinks, sports drinks, and soda. Avoid alcohol. Avoid spicy or fatty foods. General instructions Take yxka-ise-oonmquk and prescription medicines only as told by your doctor. Drink enough fluid to keep your pee (urine) pale yellow. Wash your hands often with soap and water. If you cannot use soap and water, use hand road grader operator. Make sure that all people in your home wash their hands well and often. Rest at home while you get better. Watch your condition for any changes. Take slow and deep breaths when you feel sick to your stomach. Keep all follow-up visits as told by your doctor. This is important. Contact a doctor if: Your symptoms get worse. You have new symptoms. You have a fever. You cannot drink fluids without throwing up. You feel sick to your stomach for more than 2 days. You feel light-headed or dizzy. You have a headache. You have muscle cramps. You have a rash. You have pain while peeing. Get help right away if: You have pain in your chest, neck, arm, or jaw. You feel very weak or you pass out (faint). You throw up again and again. You have throw up that is bright red or looks like black coffee grounds. You have bloody or black poop (stools) or poop that looks like tar. You have a very bad headache, a stiff neck, or both. You have very bad pain, cramping, or bloating in your belly (abdomen). You have trouble breathing. You are breathing very quickly. Your heart is beating very quickly. Your skin feels cold and clammy. You feel confused. You have signs of losing too much water in your body, such as: ?Dark pee, very little pee, or no pee. ?Cracked lips. ?Dry mouth. ?Sunken eyes. ?Sleepiness. ?Weakness. These symptoms may be an emergency. Do not wait to see if the symptoms will go away. Get medical help right away. Call your local emergency services (911 in the [place] Do not drive yourself to the hospital. Summary Nausea is feeling sick to your stomach or feeling that you are about to throw up (vomit). Vomiting is when food in your stomach is thrown up and out of the mouth. Follow instructions from your doctor about eating and drinking to keep from losing too much water in your body. Take wijq-kxu-phxoykq and prescription medicines only as told by your doctor. Contact your doctor if your symptoms get worse or you have new symptoms. Keep all follow-up visits as told by your doctor. This is important. This information is not intended to replace advice given to you by your health care provider. Make sure you discuss any questions you have with your health care provider. Document Released: 03/14/2009 Document Revised: 01/18/2020 Document Reviewed: 03/06/2019 [email or web address] Patient Education 2020 [employer] 11/26/2022 14:08:57 General Anesthesia, Adult, Care After General Anesthesia, Adult, Care After This sheet gives you information about how to care for yourself after your procedure. Your health care provider may also give you more specific instructions. If you have problems or questions, contact your health care provider. What can I expect after the procedure? After the procedure, the following side effects are common: Pain or discomfort at the IV site. Nausea. Vomiting. Sore throat. Trouble concentrating. Feeling cold or chills. Weak or tired. Sleepiness and fatigue. Soreness and body aches. These side effects can affect parts of the body that were not involved in surgery. Follow these instructions at home: For at least 24 hours after the procedure: Have a responsible adult stay with you. It is important to have someone help care for you until you are awake and alert. Rest as needed. Do not: ?Participate in activities in which you could fall or become injured. ?Drive. ?Use heavy machinery. ?Drink alcohol. ?Take sleeping pills or medicines that cause drowsiness. ?Make important decisions or sign legal documents. ?Take care of children on your own. Eating and drinking Follow any instructions from your health care provider about eating or drinking restrictions. When you feel hungry, start by eating small amounts of foods that are soft and easy to digest (bland), such as toast. Gradually return to your regular diet. Drink enough fluid to keep your urine pale yellow. If you vomit, rehydrate by drinking water, juice, or clear broth. General instructions If you have sleep apnea, surgery and certain medicines can increase your risk for breathing problems. Follow instructions from your health care provider about wearing your sleep device: ?Anytime you are sleeping, including during daytime naps. ?While taking prescription pain medicines, sleeping medicines, or medicines that make you drowsy. Return to your normal activities as told by your health care provider. Ask your health care provider what activities are safe for you. Take tkzk-dlz-dlloocu and prescription medicines only as told by your health care provider. If you smoke, do not smoke without supervision. Keep all follow-up visits as told by your health care provider. This is important. Contact a health care provider if: You have nausea or vomiting that does not get better with medicine. You cannot eat or drink without vomiting. You have pain that does not get better with medicine. You are unable to pass urine. You develop a skin rash. You have a fever. You have redness around your IV site that gets worse. Get help right away if: You have difficulty breathing. You have chest pain. You have blood in your urine or stool, or you vomit blood. Summary After the procedure, it is common to have a sore throat or nausea. It is also common to feel tired. Have a responsible adult stay with you for the first 24 hours after general anesthesia. It is important to have someone help care for you until you are awake and alert. When you feel hungry, start by eating small amounts of foods that are soft and easy to digest (bland), such as toast. Gradually return to your regular diet. Drink enough fluid to keep your urine pale yellow. Return to your normal activities as told by your health care provider. Ask your health care provider what activities are safe for you. This information is not intended to replace advice given to you by your health care provider. Make sure you discuss any questions you have with your health care provider. Document Released: 01/02/2002 Document Revised: 09/29/2018 Document Reviewed: 05/12/2018 [email or web address] Patient Education 2020 [employer] 11/26/2022 12:54:20 8- Post Op [employer] SOFTWARE DEVELOPMENT ENGINEER Surgery (09/2020) (CUSTOM) What to Do After Your Gynecology Surgery This sheet will give you general information on what to do when you are home after surgery. However, you should always follow any specific instructions given to you by your surgeon. Pain Medication Please follow the directions on the label of your medication and use your discharge medication list provided by the hospital. Do not take this medication on an empty stomach. This may cause a stomachache. Use a stool softener or gentle laxative (milk of magnesia) if needed. Constipation is not uncommon while taking oral pain medication. Use less of any narcotic pain medication as soon as your pain allows. You may take lwen-qfl-shxzckn pain medication if you no longer need your prescribed pain medication. Agew-fzq-msamjvi pain medications are Tylenol (acetaminophen) or Advil (ibuprofen). Do not take Tylenol if you are still taking [place] or Percocet. They are the same type of medication. Too much acetaminophen can hurt your liver. Activity It is OK to use the stairs, but try to avoid them or take less trips right after surgery. After surgery, you may feel tired. Rest is important for healing. Slowly increase your activity level by walking and doing normal activities as you feel comfortable. Follow surgeon instructions on driving. You may not be able to drive for one to six weeks depending on what surgery and incisions you have. Do not drive while taking narcotic pain medication. They should be out of your system for 24 hours. Diet Eating smaller meals instead of three large meals is good. This may help with your appetite and nutrition. Good nutrition will help you heal. Follow diet instructions that you were taught after surgery. Infection Prevention Washing your hands is one of the best ways to prevent infection. Always wash your hands before and after touching your incision or dressing. Hands carry germs that can cause infections. Try not to touch your incision. Keep the Incision Clean Wear clean, loose-fitting clothes to prevent clothes from rubbing on the incision. Put clean sheets on your bed when you get home. Do not let other people or animals touch the incision. Showering You may start to shower 24 hours after your surgery. Use a clean washcloth and towel on your incision before you use it on any other area of your body. Adjust the shower spray to gentle and use warm water. Gently wash over your incision using antibacterial soap and water and pat it dry. Do not rub the incision. Do not soak or submerge in the bathtub or hot tub until your surgeon says it is OK. Wound Care When you go home, you may leave your incision(s) open to the air. Your incision(s) may be closed with sutures or sarah. If incision is closed with sutures under the skin, you do not need to have these removed as they will dissolve on their own. If incision is closed with sarah, the sarah will need to be removed. If your incision is horizontal (sideways), they need to be removed within three to seven days. If your incision is vertical (up and down), they need to be removed within 10 14 days. If you have thin white tape strips (Steri-Strips) over your incision, keep them dry. Do not remove them unless they begin curling up at the sides and are almost falling off or have been in place for seven days. If your incision begins coming apart, has drainage (thick, foul smelling, white, yellow, green, pink or red) with redness around the incision and feels warm to touch, call your surgeon. You may have an infection. Call Your Doctor If: Your pain is not controlled by pain medication. You have a fever of 100.4 degrees or higher. You have a lot of bleeding from the incision or a lot of vaginal bleeding (more than two pads per hour). You have bad stomach pain or you start throwing up. If you are unable to reach your doctor, go to the hospital. Follow Up If a follow-up appointment has not been made, please call your surgeon s office within a day. Let the office know if you have sarah and they will schedule them to be removed. Contact your surgeon for any specific problems or questions that you may have. Follow Up Care 11/10/2022 08:38:06 With:CATHY STRICKLAND Address: [address] [facility] [place] [address]- [phone] Business (1) When:Within 2 Week(s) [facility] 11-26-2022 Summary of episod e note Discharge Instructions Thank you for allowing [facility] to assist you with your healthcare needs. The following is important discharge information regarding your hospital visit. Your Care Team TRICIA العراقي APRN-MALIKA STRICKLAND Your Diagnosis Pelvic mass Postoperative pain What to do next Instructions From Your Doctor NO DRIVING FOR 24 HOURS OR IF TAKING NARCOTIC PAIN MEDICATION Follow Up Appointments Follow Up with CATHY STRICKLAND When In 2 weeks Where: [address] [address]- [phone] Business (1) The Following Activity and Diet Have Been Ordered for You Discharge Activity - Ordered -- Lifting Restricted less than 10 pounds, 11/26/22 13:58:00 EST Discharge Driving Restrictions - Ordered -- No driving until pain-free, 11/26/22 13:58:00 EST Discharge Return to Work, School, or Sports (Discharge Return to status) - Ordered -- within 2 weeks, May return to: work, 11/26/22 13:58:00 EST Discharge Diet - Ordered -- Follow the post-operative/post-procedure diet instructions provided by your physician's office., 11/26/22 13:58:00 EST Someone Will Contact You Regarding These Home Health Referrals No home referrals have been ordered for you. No one will call you. Allergies Bactrim (Hives) Vicodin (Hives) predniSONE Medications Please ask your primary doctor or pharmacist before taking any other medication not listed, including over the counter drugs, herbal medications, vitamins and or supplements as they may interact with your home medications. What How Much When Why Instructions Last Dose New acetaminophen (Tylenol Extra Strength 500 mg oral tablet) 1 tab(s) by mouth Every 4 hours Duration: 14 Days Refills: 1 Pickup at [facility] New ibuprofen (ibuprofen 800 mg oral tablet) 1 tab(s) by mouth Every 8 hours Duration: 14 Days Pickup at [facility] New oxyCODONE (oxyCODONE 5 mg oral tablet ( IMMEDIATE release )) 1 tab(s) by mouth Every 6 hours as needed for for pain Postoperative pain Duration: 7 Days Pickup at [facility] Unchanged albuterol (albuterol MDI (90 mcg/ inh) CFC free inhalation aerosol) 2 puff(s) by inhalation Every 6 hours as needed for as needed for wheezing Unchanged ergocalciferol (ergocalciferol 50,000 intl units (1.25 mg) oral capsule) 1 cap by mouth Every week Vitamin D deficiency Unchanged meclizine (meclizine 25 mg oral tablet) TAKE 1 TABLET BY MOUTH TWICE DAILY FOR 30 DAYS Pharmacy Information [facility]: [address] [place] [phone] What When Comments Stop Taking naproxen (naproxen 500 mg oral tablet) TAKE 1 TABLET BY MOUTH TWICE DAILY NEEDED FOR PAIN Please take this list to your next doctor s visit. Bring all medications you take, including over the counter medications, herbals and other supplements with you to your doctor s visit. Patients and families are reminded to discard old lists and to update any records with all medication providers or retail pharmacies. Education Materials Pelvic Mass, Female A pelvic mass is an abnormal growth in the pelvis. The pelvis is the area between your hip bones. It includes the bladder, rectum, uterus, and ovaries. A pelvic mass may be found during a routine pelvic exam or while performing an MRI, CT scan, or ultrasound for other problems of the abdomen. What are common types of pelvic masses? Pelvic masses include: Ovarian cysts. These are fluid-filled sacs that form on an ovary. Tumors. These may be cancerous (malignant) or noncancerous (benign). Noncancerous tumors in the uterus are called uterine fibroids. Ectopic . This is when the fertilized egg attaches (implants) outside the uterus. Infections. What type of testing may be needed? Your health care provider may recommend that you have tests to diagnose the cause of the pelvic mass. The following tests may be done if a pelvic mass is found: Physical exam. Blood tests. X-rays. Ultrasound. CT scan. MRI. A surgery to look inside your abdomen with cameras (laparoscopy). A biopsy that is performed with a needle or during laparoscopy or surgery. In some cases, what seemed like a pelvic mass may actually be something else, such as a mass in one of the organs that is near the pelvis, an infection (abscess), or scar tissue (adhesions) that formed after a surgery. Tests and physical exams may be done once, or they may be done regularly for a period of time. Tests and exams that are done regularly will help monitor whether the mass or tissue change is growing and becoming a concern. What are common treatments? Treatment is not always needed for this condition. Your health care provider may recommend careful monitoring (watchful waiting) and regular tests and exams. Treatment will depend on the cause of the mass. Follow these instructions at home: What you need to do at home will depend on the cause of the mass. Follow the instructions that your health care provider gives to you. In general: ? Keep all follow-up visits as directed by your health care provider. This is important. ? Take kmrx-dxf-mgqmiwd and prescription medicines only as directed by your health care provider. ? If you were prescribed an antibiotic medicine, take it as told by your health care provider. Do not stop taking the antibiotic even if you start to feel better. ? Follow any restrictions that are given to you by your health care provider. Try to stay calm, and be sure to ask questions. Make sure you understand the recommendations for monitoring and whether there is a reason for concern. Contact a health care provider if you: Develop new symptoms. Note changes in the size, shape, or position of your mass. Are unable to have a bowel movement. Bruise or bleed easily. Get help right away if you: Vomit bright red blood or vomit material that looks like coffee grounds. Have blood in your stools, or the stools turn black and tarry. Have an abnormal or increased amount of vaginal bleeding. Have a fever or chills. Develop sudden or worsening pain that is not relieved by medicine. Feel dizzy or weak. Feel light-headed or you faint. Feel that the mass has suddenly gotten larger. Develop severe bloating in your abdomen or your pelvis. Cannot pass any urine. Summary A pelvic mass is an abnormal growth in the pelvis. The pelvis is the area between your hip bones. It includes the bladder, rectum, uterus, and ovaries. Pelvic masses include ovarian cysts, tumors, ectopic , or infections. Your health care provider may recommend that you have tests to diagnose the cause of the pelvic mass. Treatment will depend on the cause of the mass. This information is not intended to replace advice given to you by your health care provider. Make sure you discuss any questions you have with your health care provider. Document Released: 01/03/2008 Document Revised: 10/18/2018 Document Reviewed: 10/18/2018 [email or web address] Patient Education 2020 [email or web address] Nausea and Vomiting, Adult Nausea is feeling sick to your stomach or feeling that you are about to throw up (vomit). Vomiting is when food in your stomach is thrown up and out of the mouth. Throwing up can make you feel weak. It can also make you lose too much water in your body (get dehydrated). If you lose too much water in your body, you may: Feel tired. Feel thirsty. Have a dry mouth. Have cracked lips. Go pee (urinate) less often. Older adults and people with other diseases or a weak body defense system (immune system) are at higher risk for losing too much water in the body. If you feel sick to your stomach and you throw up, it is important to follow instructions from your doctor about how to take care of yourself. Follow these instructions at home: Watch your symptoms for any changes. Tell your doctor about them. Follow these instructions to care for yourself at home. Eating and drinking Take an ORS (oral rehydration solution). This is a drink that is sold at pharmacies and stores. Drink clear fluids in small amounts as you are able, such as: ? Water. ? Ice chips. ? Fruit juice that has water added (diluted fruit juice). ? Low-calorie sports drinks. Eat bland, bfdd-tp-yhtuag foods in small amounts as you are able, such as: ? Bananas. ? Applesauce. ? Rice. ? Low-fat (lean) meats. ? [place]. ? Crackers. Avoid drinking fluids that have a lot of sugar or caffeine in them. This includes energy drinks, sports drinks, and soda. Avoid alcohol. Avoid spicy or fatty foods. General instructions Take bwuk-itb-bynfbip and prescription medicines only as told by your doctor. Drink enough fluid to keep your pee (urine) pale yellow. Wash your hands often with soap and water. If you cannot use soap and water, use hand road grader operator. Make sure that all people in your home wash their hands well and often. Rest at home while you get better. Watch your condition for any changes. Take slow and deep breaths when you feel sick to your stomach. Keep all follow-up visits as told by your doctor. This is important. Contact a doctor if: Your symptoms get worse. You have new symptoms. You have a fever. You cannot drink fluids without throwing up. You feel sick to your stomach for more than 2 days. You feel light-headed or dizzy. You have a headache. You have muscle cramps. You have a rash. You have pain while peeing. Get help right away if: You have pain in your chest, neck, arm, or jaw. You feel very weak or you pass out (faint). You throw up again and again. You have throw up that is bright red or looks like black coffee grounds. You have bloody or black poop (stools) or poop that looks like tar. You have a very bad headache, a stiff neck, or both. You have very bad pain, cramping, or bloating in your belly (abdomen). You have trouble breathing. You are breathing very quickly. Your heart is beating very quickly. Your skin feels cold and clammy. You feel confused. You have signs of losing too much water in your body, such as: ? Dark pee, very little pee, or no pee. ? Cracked lips. ? Dry mouth. ? Sunken eyes. ? Sleepiness. ? Weakness. These symptoms may be an emergency. Do not wait to see if the symptoms will go away. Get medical help right away. Call your local emergency services (911 in the [place] Do not drive yourself to the hospital. Summary Nausea is feeling sick to your stomach or feeling that you are about to throw up (vomit). Vomiting is when food in your stomach is thrown up and out of the mouth. Follow instructions from your doctor about eating and drinking to keep from losing too much water in your body. Take dgdt-grd-vexrkvd and prescription medicines only as told by your doctor. Contact your doctor if your symptoms get worse or you have new symptoms. Keep all follow-up visits as told by your doctor. This is important. This information is not intended to replace advice given to you by your health care provider. Make sure you discuss any questions you have with your health care provider. Document Released: 03/14/2009 Document Revised: 01/18/2020 Document Reviewed: 03/06/2019 [employer] Patient Education 2020 [employer] General Anesthesia, Adult, Care After This sheet gives you information about how to care for yourself after your procedure. Your health care provider may also give you more specific instructions. If you have problems or questions, contact your health care provider. What can I expect after the procedure? After the procedure, the following side effects are common: Pain or discomfort at the IV site. Nausea. Vomiting. Sore throat. Trouble concentrating. Feeling cold or chills. Weak or tired. Sleepiness and fatigue. Soreness and body aches. These side effects can affect parts of the body that were not involved in surgery. Follow these instructions at home: For at least 24 hours after the procedure: Have a responsible adult stay with you. It is important to have someone help care for you until you are awake and alert. Rest as needed. Do not: ? Participate in activities in which you could fall or become injured. ? Drive. ? Use heavy machinery. ? Drink alcohol. ? Take sleeping pills or medicines that cause drowsiness. ? Make important decisions or sign legal documents. ? Take care of children on your own. Eating and drinking Follow any instructions from your health care provider about eating or drinking restrictions. When you feel hungry, start by eating small amounts of foods that are soft and easy to digest (bland), such as toast. Gradually return to your regular diet. Drink enough fluid to keep your urine pale yellow. If you vomit, rehydrate by drinking water, juice, or clear broth. General instructions If you have sleep apnea, surgery and certain medicines can increase your risk for breathing problems. Follow instructions from your health care provider about wearing your sleep device: ? Anytime you are sleeping, including during daytime naps. ? While taking prescription pain medicines, sleeping medicines, or medicines that make you drowsy. Return to your normal activities as told by your health care provider. Ask your health care provider what activities are safe for you. Take zazu-vga-vglgpta and prescription medicines only as told by your health care provider. If you smoke, do not smoke without supervision. Keep all follow-up visits as told by your health care provider. This is important. Contact a health care provider if: You have nausea or vomiting that does not get better with medicine. You cannot eat or drink without vomiting. You have pain that does not get better with medicine. You are unable to pass urine. You develop a skin rash. You have a fever. You have redness around your IV site that gets worse. Get help right away if: You have difficulty breathing. You have chest pain. You have blood in your urine or stool, or you vomit blood. Summary After the procedure, it is common to have a sore throat or nausea. It is also common to feel tired. Have a responsible adult stay with you for the first 24 hours after general anesthesia. It is important to have someone help care for you until you are awake and alert. When you feel hungry, start by eating small amounts of foods that are soft and easy to digest (bland), such as toast. Gradually return to your regular diet. Drink enough fluid to keep your urine pale yellow. Return to your normal activities as told by your health care provider. Ask your health care provider what activities are safe for you. This information is not intended to replace advice given to you by your health care provider. Make sure you discuss any questions you have with your health care provider. Document Released: 01/02/2002 Document Revised: 09/29/2018 Document Reviewed: 05/12/2018 [email or web address] Patient Education 2020 [employer] What to Do After Your Gynecology Surgery This sheet will give you general information on what to do when you are home after surgery. However, you should always follow any specific instructions given to you by your surgeon. Pain Medication Please follow the directions on the label of your medication and use your discharge medication list provided by the hospital. Do not take this medication on an empty stomach. This may cause a stomachache. Use a stool softener or gentle laxative (milk of magnesia) if needed. Constipation is not uncommon while taking oral pain medication. Use less of any narcotic pain medication as soon as your pain allows. You may take nziw-hgz-doanrps pain medication if you no longer need your prescribed pain medication. Lilv-nlj-vxxxbll pain medications are Tylenol (acetaminophen) or Advil (ibuprofen). Do not take Tylenol if you are still taking Hyde or Percocet. They are the same type of medication. Too much acetaminophen can hurt your liver. Activity It is OK to use the stairs, but try to avoid them or take less trips right after surgery. After surgery, you may feel tired. Rest is important for healing. Slowly increase your activity level by walking and doing normal activities as you feel comfortable. Follow surgeon instructions on driving. You may not be able to drive for one to six weeks depending on what surgery and incisions you have. Do not drive while taking narcotic pain medication. They should be out of your system for 24 hours. Diet Eating smaller meals instead of three large meals is good. This may help with your appetite and nutrition. Good nutrition will help you heal. Follow diet instructions that you were taught after surgery. Infection Prevention Washing your hands is one of the best ways to prevent infection. Always wash your hands before and after touching your incision or dressing. Hands carry germs that can cause infections. Try not to touch your incision. Keep the Incision Clean Wear clean, loose-fitting clothes to prevent clothes from rubbing on the incision. Put clean sheets on your bed when you get home. Do not let other people or animals touch the incision. Showering You may start to shower 24 hours after your surgery. Use a clean washcloth and towel on your incision before you use it on any other area of your body. Adjust the shower spray to gentle and use warm water. Gently wash over your incision using antibacterial soap and water and pat it dry. Do not rub the incision. Do not soak or submerge in the bathtub or hot tub until your surgeon says it is OK. Wound Care When you go home, you may leave your incision(s) open to the air. Your incision(s) may be closed with sutures or sarah. If incision is closed with sutures under the skin, you do not need to have these removed as they will dissolve on their own. If incision is closed with sarah, the sarah will need to be removed. If your incision is horizontal (sideways), they need to be removed within three to seven days. If your incision is vertical (up and down), they need to be removed within 10 14 days. If you have thin white tape strips (Steri-Strips) over your incision, keep them dry. Do not remove them unless they begin curling up at the sides and are almost falling off or have been in place for seven days. If your incision begins coming apart, has drainage (thick, foul smelling, white, yellow, green, pink or red) with redness around the incision and feels warm to touch, call your surgeon. You may have an infection. Call Your Doctor If: Your pain is not controlled by pain medication. You have a fever of 100.4 degrees or higher. You have a lot of bleeding from the incision or a lot of vaginal bleeding (more than two pads per hour). You have bad stomach pain or you start throwing up. If you are unable to reach your doctor, go to the hospital. Follow Up If a follow-up appointment has not been made, please call your surgeon s office within a day. Let the office know if you have sarah and they will schedule them to be removed. Contact your surgeon for any specific problems or questions that you may have. Additional Information VACCINATE! IT SAVES LIVES! Members of the community who have not yet received the COVID-19 vaccine and would like to receive it can visit one of [facility] vaccine clinics. There are many vaccine clinic locations within the [facility]. For locations and available times, please visit https://[email or web address].o neo.gov/. It is important to note that some COVID mobile vaccine clinics are held outdoors and may be canceled in rainy or stormy conditions. To learn more about pediatric vaccinations (ages 5-11), we invite you to visit the [employer] webpage. [email or web address].[email or web address]/p [email or web address]-Hdrqwhiqeip-Freq hgsftc-Sxneq-Dvgwoxbbe.html To learn more about the COVID-19 vaccine, we invite you to visit the CDC website for a list of frequently asked questions. https://www.cdc.gov/coronavirus/ 2019-ncov/vaccines/faq.html [facility] Patient Portal Access Instructions: Stay connected with your healthcare team and access your personal medical information anytime with the [facility] Patient Portal.If you would like a full copy of your medical records, please contact the [facility] Medical Records Department, Tuesday through Tuesday between 8a.m. and 4:30p.m. Please follow the directions below to access the portal: 1.Access the email account you provided upon registration to the hospital.2.Look for an invitation email from [facility].3.Open the email and access the invitation link: Accept Invitation to [facility].Fill in the required akers to create your account. Sign into www.[employer] with your username and password that you created in the above steps to stay up to date. You can then view a summary of results, a summary of your visits, and the ability to download your summaries to your computer or send the information securely to a physician. Remember that your healthcare information is confidential, so carefully consider who you will allow to register on the [facility] Patient Portal for access to your information. You can also access the [facility] Patient Portal on the [employer] jamshid. Simply click on Health Records under [employer] Data and then click on the [employer] logo. HOW TO SAFELY DISPOSE OF PRESCRIPTION MEDICATIONS Please use one of the following methods to safely dispose of your unused medications. 1.Use a drug disposal kit: the drug disposal pouch allows you to safely discard your old and unused drugs. Ask your nurse to give you one when you are discharged.2.Visit a local take-back location: Many local pharmacies and police departments have programs that collect old and unwanted prescription drugs. Call your local pharmacy or go to http://bop.fm.[employer]/1Z8Bi2q to find one close to you.3.Make use of household items: Use cat litter or old coffee grounds to dispose medications if other options are not available. Mix your drugs with these household products, seal them in an airtight container and throw it into the garbage. Call [facility]: [phone] to be sure your drugs can be disposed of in this way. Some medicines may require a different approach.4.Never flush your medications down the toilet. IF YOU HAVE BEEN PRESCRIBED AN OPIOID FOR PAIN If you have been prescribed an opioid (such as hydrocodone, oxycodone or morphine), it is critical to understand the possible side effects and risks of opioid pain medications. Even when taken as directed, opioids can have several side effects including: Tolerance, meaning you might need to take more of a medication for the same pain relief. Nausea, vomiting and/or constipation. Sleepiness, dizziness, dry mouth, confusion, depression or itching. Physical dependence, meaning you have withdrawal symptoms when a medication is stopped, can develop within a few days. KNOW YOUR RESPONSIBILITIES It is important to know exactly how much and how often to take the opioid pain medications you are prescribed. Never take opioids in higher amounts or more often than prescribed. Do not combine opioids with alcohol or other drugs that cause drowsiness, such as benzodiazepines, also known as benzos, including diazepam and alprazolam, muscle relaxants or sleep aids. Never sell or share prescription opioids. This is illegal. Store opioids in a secure place and out of reach of others (including children, family, friends and visitors). The last page of this document has been signed and retained as a CHART COPY. 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 I have received a written copy of the plan/instructions. If I have questions, I am aware that I should contact my doctor. 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 Family's history: negative. Review of Systems Ear/Nose/Mouth/Throat: Negative. Respiratory: asthma, smoker. Cardiovascular: Negative. Gastrointestinal: Negative. Genitourinary: Negative. Endocrine: Negative. Musculoskeletal: Negative. Integumentary: Negative. Neurologic: anxiety, vertigo. Health Status Allergies: Allergic Reactions (Selected) Severity Not Documented Bactrim- Hives. PredniSONE- No reactions were documented. Vicodin- Hives., Allergies (3) ActiveReaction BactrimHives predniSONENone Documented VicodinHives Current medications: (Selected) Inpatient Medications Ordered LR 1000 mL: 25 mL/hr, Intravenous, Stop: 11/27/22 17:59:00 EST Prescriptions Prescribed ergocalciferol 50,000 intl units (1.25 mg) oral capsule: 50,000 International_Unit, 1 cap(s), Oral, qWeek, 8 cap(s), 0 Refill(s) Documented Medications Documented albuterol MDI (90 mcg/inh) CFC free inhalation aerosol: 2 puff(s), Inhalation, q6h, PRN: as needed for wheezing, 18 gram(s), 0 Refill(s) meclizine 25 mg oral tablet: TAKE 1 TABLET BY MOUTH TWICE DAILY FOR 30 DAYS naproxen 500 mg oral tablet: TAKE 1 TABLET BY MOUTH TWICE DAILY NEEDED FOR PAIN, Medications (1) Active Scheduled: (0) Continuous: (1) Lactated Ringers 1000 mL 1,000 mL, Intravenous, 25 mL/hr PRN: (0) Problem list: Medical Anxiety / SNOMED CT 47082796 / Confirmed Asthma / SNOMED CT 190211489 / Confirmed Hx of hysterectomy / SNOMED CT 586839590 / Confirmed 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 Screening for diabetes mellitus / SNOMED CT 712322026 / Confirmed Vertigo / SNOMED CT 7383867431 / Confirmed, Active Problems (8) Anxiety Asthma HPV in female Hx of hysterectomy Screening for diabetes mellitus Tobacco use Tobacco use Vertigo Histories Past Medical History: Active Asthma (712493176) Family History: Cancer Mother Comments: 12/22/2020 9:11 Belkys Coppola CAKE FORMER cervical Sister Comments: 12/22/2020 9:11 Belkys [employer]pp[employer] CAKE FORMER cervical Asthma Son Hypertension Mother Sister Diabetes mellitus type 1 Mother High blood pressure Mother Heart failure Mother Psychosis Sister Alcohol abuse Father Bipolar disorder Sister Heart attack Mother Hypercholesterolemia Mother Sister Depression Sister Sister Scoliosis Daughter Diabetes Mother Sister Procedure history: Laparoscopy ([id number]) on 11/26/2022 at 37 Years. Comments: 11/26/2022 8:58 GONZALEZ - Kenia Gutierrez RN removal of pelvic mass and right tube and ovary Robotic hysterectomy with bilateral salpingectomy ([id number]) on 03/04/2017 at 31 Years. Dilation and curettage ([id number]) in 2015 at 29 Years. Bartholin's cyst ([id number]) in 2015 at 29 Years. Comments: 12/22/2020 9:20 Belkys Coppola CAKE FORMER 2 Bartholin's cyst section ([id number]). LEEP (Loop electrosurgical excision procedure) of cervix ([id number]). Social History Social & Psychosocial Habits Alcohol 12/16/2020isk Assessment: Denies Alcohol Use 02/17/2021 Use: denies 12/22/2020 Use: Never Substance Abuse 12/16/2020isk Assessment: Denies Substance Abuse 02/17/2021 Use: denies 12/22/2020 Use: Never Tobacco 12/16/2020isk Assessment: Denies Tobacco Use 02/17/2021 Tobacco Use: 5-9 cigarettes (between 1, pt states she quit smoking 5 days ago. Type: Cigarettes Previous treatment: None Ready to change: No 12/22/2020 Tobacco Use: 10 or more cigarettes (/ Nutrition/Health 07/05/2022 Caffeine intake amount: coffee 2 daily . Physical Examination Vital Signs 11/26/2022 9:00 EST Temperature Temporal Artery 37.1 DegC Apical Heart Rate 80 bpm Respiratory Rate 15 br/min Systolic Blood Pressure Non-Invasive 112 mmHg Diastolic Blood Pressure Non-Invasive 69 mmHg Vital Signs(last 24 hrs) Last Charted Resp Rate 15 br/min (NOV 26 09:00) FZF598 mmHg (NOV 26 09:00) DBP69 mmHg (NOV 26 09:00) Measurements from flowsheet : Measurements 11/26/2022 9:00 EST Height 163 cm Admission Weight 53.5 kg Weight Method Stated Schoolcraft Body Weight 55.10 kg Pain assessment: Pain Assessment 11/26/2022 9:00 EST Primary Pain Location Abdomen Abdominal Pain Location RLQ Primary Pain Intensity 6 Primary Pain Quality Cramping, Sharp Pain Scale Type 0-10 Pain scale . General: Alert and oriented. Airway: Normal temporomandibular joint mobility. Mallampati classification: II (soft palate, fauces, uvula visible). Head: Normocephalic. Dentition Evaluation: Dentures, lower, Dentures, upper. Neck: Supple. Respiratory: Lungs are clear to auscultation. Cardiovascular: Normal rate. Heart Sounds: Normal. Gastrointestinal: Soft. Musculoskeletal Normal range of motion. Integumentary: Intact. Neurologic: Alert, Oriented. Review / Management Results review: No qualifying data available , Lab results 11/26/2022 12:44 EST SN - CAt - Case Attendee SN - CAt - Case Attendee SN - CAt - Case Attendee SN - CAt - Case Attendee SN - CAt - Case Attendee SN - CAt - Case Attendee SN - CAt - Case Attendee SN - CAt - Case Attendee SN - CAt - Case Attendee SN - CAt - Case Attendee SN - CAt - Role Performed Primary Surgeon SN - CAt - Role Performed SUPERINTENDENT [employer] SN - CAt - Role Performed Truss Driver Helper 1 SN - CAt - Role Performed Scrub 1 SN - CAt - Role Performed Edi Programmer 1 11/26/2022 10:50 EST [facility] MAIN OR Preop & Phase II Record [facility] MAIN OR Preop & Phase II Record 11/26/2022 9:20 EST SN - Preop - CTm Pt in SDS Room 11/26/2022 8:45 SN - Preop - CTm Pt Ready for OR/Proced 11/26/2022 9:20 11/26/2022 9:19 EST famotidine 20 mg mg Lactated Ringers Injection Begin Bag 1,000 mL mL 11/26/2022 9:15 EST Hand Left 20 gauge Peripheral IV Activity: Insert new site Peripheral IV Dressing Condition: Clean, Dry, Intact Peripheral IV Dressing Activity: Applied, Transparent dressing Peripheral IV Line Status/Patency: Flushes easily Peripheral IV Line Care: Secured with tape Peripheral IV Site Condition: No complications Peripheral IV Equipment: Extension set Peripheral IV Number of Attempts: 2 11/26/2022 9:00 EST Designated Person #1 We May Share DONAVAN CAMILO [phone] Designated Person #1 Relationship Sibling Privacy Restrictions Requested None Height 163 cm Admission Weight 53.5 kg Weight Method Stated Schoolcraft Body Weight 55.10 kg Temperature Temporal Artery 37.1 DegC Apical Heart Rate 80 bpm Respiratory Rate 15 br/min Systolic Blood Pressure Non-Invasive 112 mmHg Diastolic Blood Pressure Non-Invasive 69 mmHg Primary Pain Location Abdomen Abdominal Pain Location RLQ Primary Pain Intensity 6 Primary Pain Quality Cramping, Sharp Pain Scale Type 0-10 Pain scale Heart Rhythm Regular Oxygen Therapy Room air Oxygen Saturation 99 % Abdomen Description Non-distended, Soft, Flat Abdomen Palpation Tender Abdomen Tender RLQ Bowel Sounds All Quadrants Present Urinary Elimination Voiding, no difficulties Status No, per patient Skin Integrity Intact IV Present Present Neurological Symptoms Patient denies Extremity Movement Equal Characteristics of Speech Clear Level of Consciousness Alert Affect/Behavior Appropriate Orientation Oriented x 4 Sensory Deficits None Sleep Apnea Snore No Sleep Apnea Tired No Sleep Apnea Obstruction No Sleep Apnea Pressure No Sleep Apnea BMI No Sleep Apnea Age No Sleep Apnea Neck No Sleep Apnea Gender No Sleep Apnea Score 0 High Risk for Sleep Apnea Yes Diagnosed With Sleep Apnea No Advanced Directives No - refuses information Infectious Disease Symptoms Patient states no symptoms Infectious Disease Recent Exposure No Alcohol and Drug Use No Employee of Institutional Living No Health Care Employee No History of Exposure to TB No History of Positive Chest X-Ray for TB No History of Positive TB Skin Test No Homeless No Known Immunosuppression No Recent Immigrant No Resident of Institutional Living No Bloody Sputum No Fatigue No Fever No Loss of Appetite No Night Sweats No Persistent Cough > 3 Weeks No Weight Loss No Allergies No Web Production Assistant On Yes Consent Form Signed Yes Patient Dressed In Hospital gown CHG Preoperative Wash/Wipe Night before procedure, Day of procedure History & Physical Update On Chart Yes History & Physical On Chart Yes Obstructive Sleep Apnea Assess Completed Yes Orientation Assessment Oriented x 4 Safety Brochure Information Reviewed Yes Aimee Gifford Video Viewed No Barriers to Learning None evident Teaching Method Explanation Teaching Evaluation No further teaching needed Preferred Written Language Dominican Preferred Spoken Language Dominican Information Given by Patient Patient's Current Physicians Cee العراقي, WINDOWS ADMIN Discharge To, Anticipated Home with family care Activity Status ADL Awake, Repositions self SCD On/Re-applied bilateral knee high NPO Status Maintained, More than 8 hours Standard Safety ID band on, Call device within reach, Bed in low position, Wheels locked, Visitor at bedside, Safety level maintained Prev Test Positive/Diagnosis w/COVID-19 Yes Previous COVID-19 Positive Date 04/2021 Current Quarantine/Isolated any Illness No Any Contact with Sick Animals/Birds No Traveled Anywhere in Last 30 Days No Allergy Band on and Verified No Patient ID Band on and Verified Yes Implants Verified No Pacemaker/AICD Verified No Anesthesia Consent Signed Yes Blood Consent Signed Yes Last Fluid Intake 11/25/2022 23:00 Last Food Intake 11/25/2022 23:00 Lost Weight Unintentionally Recently No Eat Poorly Due to Decreased Appetite No Total MST Score 0 No Personal Devices, Patient Valuables None Anesthesia/Transfusions Prior anesthesia Admission Note-Nursing Same Day Patient History . Assessment and Plan [place] [employer] Anesthesiologists (ASA) physical status classification: Class II. Anesthetic Preoperative Plan Premedication: intravenous. Anesthetic technique: General. Induction: intravenously. Maintenance airway: Oral endotracheal tube. Postoperative pain management: Per surgeon. Risks discussed: nausea, vomiting, sore throat. Informed consent: signed by patient. Digitally Signed by SURJIT SOSA on 11/26/2022 12:46 PM [facility] Evaluation + Plan note No data available for this section [facility] Evaluation + Plan note Future Appointments Appointment Date:10/15/2022 02:00:00 PM Scheduled Provider:TRICIA العراقي Location:[facility] Appointment Type:PC OV Appointment Date:10/26/2022 02:00:00 PM Scheduled Provider: Location:[facility] Appointment Type:US Pelvis Non-OB W/Transvaginal Future Scheduled TestsPathology Clutch Operator Request 10/12/22US Pelvis Non-OB W/Transvaginal 10/26/22 [facility] Evaluation + Plan note Future Appointments Appointment Date:10/26/2022 02:00:00 PM Scheduled Provider: Location:[facility] Appointment Type:US Pelvis Non-OB W/Transvaginal Appointment Date:11/05/2022 09:30:00 AM Scheduled Provider:[place] [id number] Location:[facility] Appointment Type:PT Outpatient Evaluation Diagnostic Tests Pendinganti-Thyroid Peroxidase 10/15/22 Future Scheduled TestsUS Pelvis Non-OB W/Transvaginal 10/26/22 [facility] Evaluation + Plan note Future Appointments Appointment Date:10/26/2022 02:00:00 PM Scheduled Provider: Location:[facility] Appointment Type:US Pelvis Non-OB W/Transvaginal Appointment Date:11/05/2022 09:30:00 AM Scheduled Provider:[place] [id number] Location:[facility] Appointment Type:PT Outpatient Evaluation Diagnostic Tests PendingHPV Screen, DNA Probe 10/12/22 Future Scheduled TestsUS Pelvis Non-OB W/Transvaginal 10/26/22 [facility] Evaluation + Plan note Future Appointments Appointment Date:10/26/2022 02:00:00 PM Scheduled Provider: Location:[facility] Appointment Type:US Pelvis Non-OB W/Transvaginal Appointment Date:11/05/2022 09:30:00 AM Scheduled Provider:[place] [id number] Location:[facility] Appointment Type:PT Outpatient Evaluation Future Scheduled TestsUS Pelvis Non-OB W/Transvaginal 10/26/22 [facility] Evaluation + Plan note Future Appointments Appointment Date:11/05/2022 09:30:00 AM Scheduled Provider:[place] [id number] Location:[facility] Appointment Type:PT Outpatient Evaluation [facility] Evaluation + Plan note Future Appointments [facility] documented in this encounter [facility] note* Diagnosis Vestibular migraine- Primary Ocular migraine Other forms of migraine, without mention of intractable migraine without mention of status migrainosus Clonus Abnormal involuntary movements documented in this encounter [facility] note* Diagnosis Vestibular migraine- Primary documented in this encounter [facility] note* Diagnosis Ocular migraine Other forms of migraine, without mention of intractable migraine without mention of status migrainosus Vestibular migraine Clonus Abnormal involuntary movements documented in this encounter [facility] note* Diagnosis Vestibular migraine- Primary Ocular migraine Other forms of migraine, without mention of intractable migraine without mention of status migrainosus documented in this encounter [facility] Discharge instructions No data available for this section [facility] Progress note No data available for this section [facility] Summary Purpose Family History No Family History Records FoundNo Family History Records FoundNo Family History Records FoundNo Family History Records FoundNo Family History Records FoundNo Family History Records FoundNo Family History Records Found Advance Directives No Advanced Directives Records FoundNo Advanced Directives Records FoundNo Advanced Directives Records FoundNo Advanced Directives Records FoundNo Advanced Directives Records FoundNo Advanced Directives Records FoundNo Advanced Directives Records Found Reason for Referral Specialty Diagnoses / Procedures Referred By Contac t Referred To Contact Neurology Diagnoses Vestibular migraine Ocular migraine Procedures CONSULT TO NEUROLOGY OFFICE/OUTPATIENT [facility] MDM 60-74 MINUTES Craig Hester MD [address] [place] [address] Referral ID Status Reason Start Date Expiration Date Visits Requested Visits Authorized [id number] Authorized PCP Requested Referral 3 08/28/2024 1 1 Specialty Diagnoses / Procedures Referred By Contac t Referred To Contact MR IMAGING Diagnoses Ocular migraine Vestibular migraine Clonus Procedures MRI BRAIN WO/W IVCON MRI BRAIN BRAIN STEM W/O W/CONTRAST MATERIAL Craig Hester MD [address] [place] [address] [facility] [place] [address] Referral ID Status Reason Start Date Expiration Date Visits Requested Visits Authorized [id number] Pending Review Auto-Generat ed Referral 07/04/2023 08/02/2024 1 1 Additional Source Comments INFORMATION SOURCE (unrecogn ized section and content) DATE CREATED AUTHOR AUTHOR'S ORGANIZ ATION 04/05/2018 [facility] DATE CREATED AUTHOR AUTHOR'S ORGANIZ ATION 08/09/2019 [facility] DATE CREATED AUTHOR AUTHOR'S ORGANIZ ATION 01/12/2021 [facility] ([place] DATE CREATED AUTHOR AUTHOR'S ORGANIZ ATION 12/03/2022 [facility] [place] DATE CREATED AUTHOR AUTHOR'S ORGANIZ ATION 02/19/2023 [facility] DATE CREATED AUTHOR AUTHOR'S ORGANIZ ATION 12/13/2023 [facility] Care Team (unrecognized sect ion and content) Care Team Personnel Name: PHYSICIAN, PATIENT UNSURE Member Role: Primary Care Physician Care Team Related Persons Name: FILEMON CAMILO Address: [address] [place], [place] [phone] [place] Name: MARIA CAMILO Care Team Personnel Name: PHYSICIAN, PATIENT UNSURE Member Role: Primary Care Physician Care Team Related Persons Name: FILEMON CAMILO Address: Home [address] [place], [place] [phone] [place] Name: MARIA CAMILO Care Team Personnel Name: PHYSICIAN, PATIENT UNSURE Member Role: Primary Care Physician Care Team Related Persons Name: FILEMON CAMILO Address: Home [address] [place], [place] [phone] [place] Name: MARIA CAMILO Care Team Personnel Name: PHYSICIAN, PATIENT UNSURE Member Role: Primary Care Physician Care Team Related Persons Name: TON FILEMON Hernandez Address: [place] [address] [place], [place] [phone] [place] Name: MARIA CAMILO Care Team Personnel Name: PHYSICIAN, PATIENT UNSURE Member Role: Primary Care Physician Care Team Related Persons Name: FILEMON CAMILO Address: [place] [address] [place], [place] [phone] [place] Name: MARIA CAMILO Care Team Personnel Name: PHYSICIAN, PATIENT UNSURE Member Role: Primary Care Physician Care Team Related Persons Name: TON FILEMON Hernandez Address: [place] [address] [place], [place] [phone] [place] Name: FILEMON CAMILOBERLY Care Team Personnel Name: PHYSICIAN, PATIENT UNSURE Member Role: Primary Care Physician Care Team Related Persons Name: TON FILEMON Hernandez Address: [place] [address] [place], [place] [phone] [place] Name: MARIA CAMILO Care Team Personnel Name: TRICIA العراقي APRN-PIPE OUT WORKER Position: P4 Advanced Practice Nurse Member Role: Primary Care Physician Address: Address: [address] [place] [phone] [place] Care Team Related Persons Name: TON FILEMON Hernandez Address: [place] [address] [place], [place] [phone] [place] Name: MARIA CAMILO Source Comments (unrecognize d section and content) In the event this informatio n is protected by the Federal Confidentiality of Alcohol and Drug Abuse Patient Records regulations: The Federal rules restrict any use of the information to criminally investigate or prosecute any alcohol or drug abuse patient.[facility] Hospital[facility] the event this information is protected by the Federal Confidentiality of Alcohol and Drug Abuse Patient Records regulations: The Federal rules restrict any use of the information to criminally investigate or prosecute any alcohol or drug abuse patient.[facility] Hospital[facility] the event this information is protected by the Federal Confidentiality of Alcohol and Drug Abuse Patient Records regulations: The Federal rules restrict any use of the information to criminally investigate or prosecute any alcohol or drug abuse patient.[facility] Hospital[facility] the event this information is protected by the Federal Confidentiality of Alcohol and Drug Abuse Patient Records regulations: The Federal rules restrict any use of the information to criminally investigate or prosecute any alcohol or drug abuse patient.[facility] HospitalIn the event this information is protected by the Federal Confidentiality of Alcohol and Drug Abuse Patient Records regulations: The Federal rules restrict any use of the information to criminally investigate or prosecute any alcohol or drug abuse patient.[facility] HospitalIn the event this information is protected by the Federal Confidentiality of Alcohol and Drug Abuse Patient Records regulations: The Federal rules restrict any use of the information to criminally investigate or prosecute any alcohol or drug abuse patient.[facility] HospitalIn the event this information is protected by the Federal Confidentiality of Alcohol and Drug Abuse Patient Records regulations: The Federal rules restrict any use of the information to criminally investigate or prosecute any alcohol or drug abuse patient.[facility] Reason for Visit (unrecogniz ed section and content) Reason Comments Medication Problem Specialty Diagnoses / Procedures Referred By Patricia t Referred To Contact MR IMAGING Diagnoses Ocular migraine Vestibular migraine Clonus Procedures MRI BRAIN WO/W IVCON MRI BRAIN BRAIN STEM W/O W/CONTRAST MATERIAL Craig Hester MD [address] [place] [address] [place] [address] Referral ID Status Reason Start Date Expiration Date V isits Requested Visits Authorized [id number] Closed Auto-Generate d Referral 07/19/2023 08/18/2023 1 1 Reason Comments Medication Question Care Teams (unrecognized sec tion and content) Health Teacher Relationship Specialty Start Date End Date Terrance Logan [address] [place] [address] Referring Ent - Otolaryngology 06/06/23 Health Teacher Relationship Specialty Start Date End Date Terrance Logan [address] [facility] [place] [address] Referring Ent - Otolaryngology 06/06/23 Health Teacher Relationship Specialty Start Date End Date Terrance Logan [address] [facility] [place] [address] Referring Ent - Otolaryngology 06/06/23 Health Teacher Relationship Specialty Start Date End Date Terrance Logan [address] [facility] [place] [address] Referring Ent - Otolaryngology 06/06/23 Health Teacher Relationship Specialty Start Date End Date Terrance Logan [address] [facility], [place] [phone] Referring Ent - Otolaryngology 06/06/23 FOR RECORDS PERTAINING TO PATIENTS WHO ARE OR HAVE BEEN ENROLLED IN A CHEMICAL DEPENDENCY/SUBSTANCEABUSE PROGRAM, SOME INFORMATION MAY BE OMITTED. This clinical summary was aggregated from multiple sources. Caution should be exercised in using it in the provision of clinical care. This summary normalizes information from multiple sources, and as a consequence, information in this document may materially change the coding, format and clinical context of patient data. In addition, data may be omitted in some cases. CLINICAL DECISIONS SHOULD BE BASED ON THE PRIMARY CLINICAL RECORDS. [facility] [employer] provides no warranty or guarantee of the accuracy or completeness of information in this document.
[2023-12-17 11:22] LABS: AST(SGOT) 11 U/L (15-37); Alanine Aminotransfer ALT/SGPT 16 U/L (13-56); Alkaline Phosphatase 54 U/L (45-117); Anion Gap 9 (5-15); BUN 11 mg/dL (7-18); BUN/Creat Ratio 14.3 RATIO (10-20); Bilirubin, Direct 0.09 mg/dL (0.00-0.30); Calcium,Total 9.6 mg/dL (8.5-10.1); Chloride 108 mmol/L (98-107); Creatinine, Serum 0.77 mg/dL (0.55-1.02); EST Glomerular Filtration Rate 89 mL/min (>60); Est Glom Filt Rate - Afr Amer 108 mL/min (>60); Estimated Creatinine Clearance 85.54 ml/min; Globulin 3.6 g/dL (2.2-4.2); Glucose 97 mg/dL (74-106); Lipase 34 U/L (13-75); Potassium 3.8 mmol/L (3.5-5.1); Protein, Total 7.6 g/dL (6.4-8.2); Sodium Level 139 mmol/L (136-145)
[2023-12-17 11:32] VITALS: BP 111/67; PULSE 80; RESP 12; O2SAT 98
[2023-12-17] MEDS: proCHLORPERazine 10 MG/2 ML Vial 5 MG IV (12:09)
[2023-12-17] MEDS: Ketorolac 15 MG/ML Vial IV (12:10)
[2023-12-17] MEDS: DiphenhydrAMINE 50 MG/ML Syringe 12.5 MG IV (12:10)
[2023-12-17 12:51] LABS: Bacteria 0 SEEN /hpf (None Seen); Mucous, Urine 0 SEEN /hpf (<or=2+); Red Blood Cells-Urine 0 SEEN /hpf (0-5); Squamous Epithelial Cells - UA 0 SEEN /hpf (5-10); White Blood Cells 0 SEEN /hpf (0-5)
[2023-12-17 12:54] LABS: Color, Urine Yellow (Yellow); Glucose, Dipstick Normal (Normal); Ketone-Dipstick 15 mg/dl (Negative); Leukocyte Esterase-Dipstick Negative /ul (Negative); Nitrite-Dipstick Negative (Negative); Occult Blood-Urine Negative /ul (Negative); Protein-Dipstick Negative (Negative); Specific Gravity, Urine 1.015 (1.002-1.030); Urine Bilirubin Dipstick Negative (Negative); Urine Clarity Clear (Clear); Urine Urobilinogen Normal (Normal)
[2023-12-17 13:45] VITALS: BP 111/67; PULSE 80; RESP 12; TEMP 36.6; O2SAT 98
== END 2023-12-17 13:54 | disposition home or self-care (01) ==
PROVIDERS: Emergency Provider Emergency Medicine; PCP Student in an Organized Health Care Education/Training Program; Visit Provider Emergency Medicine
DX: G43.909 Migraine, unspecified, not intractable, without status migrainosus (principal); R25.1 Tremor, unspecified; R11.10 Vomiting, unspecified; Z85.41 Personal history of malignant neoplasm of cervix uteri; Z90.710 Acquired absence of both cervix and uterus; F17.210 Nicotine dependence, cigarettes, uncomplicated
CPT/HCPCS: 70450; 80048; 80076; 81001; 83690; 85025; 96361; 96374; 96375; 99283; J7030; A4216

== ENCOUNTER → 2025-03-11 | Outpatient (CLI) | payer MEDICAID, SELFPAY ==
--- NOTE | 2025-03-11 10:20 | MRI_ITS ---
PROCEDURE: BRAIN W/WO CONTRAST 03/11/2025 REASON FOR EXAM: DIZZINESS, PERSISTENT/RECURRENT, CARDIAC OR VASCULAR CAUSE SUSPT. TECHNIQUE: Routine brain MRI without and with intravenous contrast. Multiplanar and multisequence images were obtained. CONTRAST: Clariscan VOLUME: 13 mL. COMPARISON: None. FINDINGS: The ventricles are normal in size and midline in position. No evidence of acute hemorrhage or infarction. No extra-axial blood or fluid collections. No abnormal intracranial enhancement. The paranasal sinuses are clear. The mastoid air cells are well aerated. The orbits are unremarkable. MRI/Brain W/WO Contrast IMPRESSION: No acute intracranial abnormality. Reading Location: [place] [address]
== END | disposition home or self-care (01) ==
PROVIDERS: PCP Registered Nurse; Referring Provider Nurse Practitioner Family; Visit Provider Nurse Practitioner Family
DX: R42 Dizziness and giddiness (principal); H53.2 Diplopia; R47.89 Other speech disturbances
CPT/HCPCS: 70553; A9575